=== PATIENT | female | born 1960 | race Caucasian/White ===

== ENCOUNTER → 2022-12-18 | Outpatient (CLI) | payer OTHER ==
--- NOTE | 2022-12-18 09:04 | P.PAINCN ---
History of Present Illness - Reason for Consult Consult date: 12/18/22 - History of Present Illness At this is initial consultation visit for this 62 years old female with a chronic history of severe low back pain, started after patient tripped and fell at work, which happened in March of last year, she reports from that time , he started having severe low back pain with occasional radiation to the lower extremity, she described the pain as constant dull aching pain, pain increases with any activity she tried chiropractors and she tried lumbar support brace and she tried to topical pain medication, and [id number] NSAID, she reported that she had no benefit from it and she was evaluated by Dr. Lo spine surgeon and he recommended interventional pain management, he denies any fever or night sweats she denies any auditory or sensory deficit she denies any change in the bowel movement or urination, pain is constant and increases with any activity and interferes with activity of daily livings Past Medical History History of Any Multi-Drug Resistant Organisms: None Reported Smoking Status: Unknown if ever smoked Physical Exam Physical Examinations : -Constitutiona : Cooperative , not in acute distress . -HEENT : nech : supple , no Lymphadenopathy , normal thyroid size . : eyes : no ptosis , no icterus, no photophobia . - neurologic : Cranial nerve II to XII intact , no focal neurological deffecit . -psychatric : alert , oriented X 3 , appropriate affect , intact judgment and insight . -Lymphatic : no Lymphadenopathy . - musculoskeltal : Lumber spine moter stegnth lower extremities ,thigh and legs 5/5 Right side , 5/5 Left side deep tendon reflexes : normal Knee Jerk , normal ankle Jerk lumber facet Loading Test =positive Right , positive Left Range of motion of the lumbar spine F lexion 30 degrees, extension 10 degrees strait leg raising test = positive at 45 degree Fabere test= positive Right , and positive LT . tenderness over the Sacroiliac joint on the Right , and Left sides Results Comments: MRI of the lumbar spine= multilevel lumbar degenerative disc disease and multilevel lumbar facet arthropathy Assessment and Plan Plan: Assessment and plan= chronic low back pain secondary to lumbar degenerative disc disease , lumbar spondylosis with lumbar facet arthropathy . Description would be good candidate to have diagnostic medial branch block lumbar area at L3- 4 and L4- 5 The procedure twice and if she had good results with proceeding with RFA I have spent 35 minutes on patient care today. The time was used to review the medical records including relevant urine studies and Prescription history (MAPs), review of the available imaging, evaluation and examination of the patient, coordination of care with the medical staff and if applicable referring physicians, as well as creation of the medical record. Maps were checked and appropriate, opioid start talking form is on file and updated, urine drug screens of been appropriate and have been reviewed. , Time with Patient: Greater than 30 PQRS Measure Charge Sheet Measure #130: Documentation of Current Meds in Medical Chart: Patient's medications documented in chart Measure #226: Tobacco Use: Screen & Cessation Intervention: Pt not a tobacco user Measure #111: Pneumonia Vaccination: Pneumococcal vaccine NOT administered or previously given Measure #47: Advance Care Plan: Advance care planning discussed & documented, pt chose/unable to give Measure #412: Opioid Treatment Agreement: No documentation of signed opioid treatment agreement Measure #408: Opioid Therapy Follow-up Evaluation: Patient had NO f/u eval minimum every 3 months during opioid therapy Measure #317: Preventitive Care & Scrn High Bld Press & F/U: Normal blood pressure, f/u not required Measure #128: Body Mass Index (BMI) Screening & Follow-up: BMI documented ABOVE normal parameters - f/u documented Measure #131: Pain Assessment & Follow-up: Pain positive & plan documented, Follow-up scheduled Measure #431: Unhealthy Alcohol Use Preventative Care & Scrn: Patient not identified as an unhealthy alcohol user
[2022-12-18 09:45] VITALS: BP 135/81; PULSE 82; RESP 18; TEMP 98.7
== END ==
LOC: PNWHC3 08:17
PROVIDERS: ATTEND Specialist
DX: M51.36 Other intervertebral disc degeneration, lumbar region (principal); G89.29 Other chronic pain; S32.009A Unspecified fracture of unspecified lumbar vertebra, initial encounter for closed fracture; M47.816 Spondylosis without myelopathy or radiculopathy, lumbar region
CPT/HCPCS: 99211

== ENCOUNTER → 2023-02-05 | Outpatient (CLI) | payer OTHER ==
[2023-02-05 12:26] VITALS: BP 131/74; PULSE 76; RESP 18; TEMP 97.7
--- NOTE | 2023-02-05 13:30 | P.PAINPG ---
PQRS Measure Charge Sheet Comment: A 62 yr old female with a history of severe and chronic LBP since Mar 2022 secondary to lumbar DDD and spondylosis with facet arthropathy without myelopathy presents today for evaluation s/p BL L3-L4, L4-S5 MBB #1. Pt states she experienced 100% pain relief x 8 hr s s/p procedure. Pain level is provoked at 8/10 in intensity, constant, localized in the lumbar spine, achy, sore in character w shooting towards the BLEs. Pain is provoked by bending, lifting. Pain is alleviated with medications, heat, ice, topical, repositioning, reclining and rest. Interventional pain procedures completed include BL MBB L2-L4 x1 Patient is currently on Ibu Patient denies any side effects of the medication(s), denies excessive drowsiness or sleepiness, denies suicidal ideation and reports that the current pain medication is helping to control the pain and improve activities of daily living. Patient denies any motor or sensory deficits. Patient denies any fever or night sweats, denies any change in the bowel movements or urination. Physical Examination: -Constitutional: Cooperative. Not in acute distress . - Neurologic: Cranial nerve II to XII intact. No focal neurological deficits. - Psychatric: Alert & oriented x 3. Matching mood & appropriate affect. Judgment and insight intact. - Musculoskeletal: Cervical spine: Muscle bulk/ tone/ strength in the bilateral upper extremities normal Vertebral body tenderness to palpation over Spurling test positive Distraction test positive Facet loading test positive TTP Thoracic spine Muscle bulk / tone/ strength in the bilateral paraspinal muscles normal Vertebral body tender to palpation over Facet loading test positive TTP Lumbar spine: Motor bulk/ tone/ strength lower extremities , thigh and legs : 5/5 Deep tendon reflexes : Normal Knee Jerk. Normal Ankle Jerk . Vertebral body tenderness to palpation over Bentley Test positive Lumbar Facet Loading Test positive BL L3-L4, L4-L5 Straight Leg Raise: positive at 30 degrees right side/ left side Gaenslen's Test positive Sacral spine : Severe tenderness over the Sacroiliac joint: right side / left side Range of motion: Flexion of the lumbar spine <60 degrees Range of motion: Extension of the lumbar spine <20 degrees Gaenslen's Test positive right side / left side Esthela test: positive right side / left side Thigh Thrust Test positive right side / left side Sacral Thrust Test positive right side / left side Assessment and plan: Chronic LBP secondary to lumbar DDD, spondylosis with facet arthropathy without myelopathy Recommendation of BL MBB L3-L4, L4-L5 #2. May need a series of injections, up until RFA, for optimal pain relief. Risks, benefits of procedure discussed and pt verbalized understanding. Admits to anticoagulant use or medical history of diabetes. Protocol for discontinuation/ continuation of medications bradley procedure discussed. All questions answered. I have spent less than 30 minutes on patient care today. Dr Seymour was available by phone for the evaluation of this patient. The time was used to review the medical records including relevant urine studies and Prescription h istory (MAPs), review of the available imaging, evaluation and examination of the patient, coordination of care with the medical staff and if applicable referring physicians, as well as creation of the medical record PQRS Narrative: Hx Alcohol Use (MH) Yes: OCCASIONAL Home Medications: Ambulatory Orders Aso Bladder Control 1 tab PO HS 01/18/23 Cholecalciferol (Vitamin D3) [Vitamin D3 (50 Mcg = 2000 Iu) Chew Tab] 50 mcg PO QAM 01/18/23 Ibuprofen 800 mg PO Q8H PRN 01/18/23 L.acidoph,Paracasei, B.lactis [Probiotic] 1 each PO QAM 01/18/23 Melatonin 3 mg PO HS 01/18/23 Tri-Chromium 500 mcg PO W/BRKFST 01/18/23 Controlled Substance Measures - Controlled Substance Measures Is patient prescribed a controlled substance at discharge?: No
== END ==
LOC: PNWHC3 09:05
PROVIDERS: ATTEND Specialist
DX: M51.36 Other intervertebral disc degeneration, lumbar region (principal); M47.816 Spondylosis without myelopathy or radiculopathy, lumbar region; G89.29 Other chronic pain; Z91.09 Other allergy status, other than to drugs and biological substances
CPT/HCPCS: 99211

== ENCOUNTER 2023-03-02 11:46 | Day surgery (SDC) | payer OTHER ==
[2023-02-28 13:00] VITALS: BMI 25.4
[2023-03-02 12:10] VITALS: TEMP 96.9
[2023-03-02] MEDS ORDERED: LACTATED RINGERS 1,000 ML IV ONE ×2 (12:23→13:07)
[2023-03-02] MEDS ORDERED: fentaNYL (PF) 50 MCG/ML 2 ML AMP ONE (12:43)
[2023-03-02] MEDS ORDERED: MIDAZOLAM 2 MG/2 ML VIAL ONE (12:43)
[2023-03-02] MEDS ORDERED: methylPREDNISolone ACETATE 40 MG/ML 1 ML VIAL ONE (12:43)
[2023-03-02] MEDS ORDERED: ROPIVACAINE 5 MG/ML 20 ML AMPULE ONE (12:43)
--- NOTE | 2023-03-02 13:07 | P.PCN ---
Date of Procedure: 03/02/23 Procedure(s) Performed: PREOPERATIVE DIAGNOSIS : 1- Lumbar spondylosis with Facet Arthropathy without myelopathy . POSTOPERATIVE DIAGNOSIS: 1- Lumbar spondylosis with Facet Arthropathy without myelopathy . PROCEDURE: Diagnostic bilateral L2 ,L3 , L4 ,medial branch block under fluoroscopy guidance(fluoroscopy images available in the radiology Department ) ( To target the facet joint between Bilateral L3 4, L4-5 )#2nd ANESTHESIA:, Monitored anesthesia care as per anesthesia department. EBL: Minimal COMPLICATION: None PROCEDURE INDICATION: Chronic low back pain secondary to Facet arthropathy unresponsive to conservative treatment. PROCEDURE DESCRIPTION: the patient was seen and identified in the preop holding area , risks and benefits and possible complications of the procedure and alternative were discussed with the patient, and the patient agreed to proceed with the procedure and signed the consent and vital signs monitored during the procedure and fluoroscopy was used to maximize the benefit and accuracy of the needle placement, and sedation was given to decrease patient anxiety, patient was taken to the procedure room and placed in prone position vital signs monitored in the back prepped with chlorhexidine X3 then under strict sterile technique using a right oblique fluoroscopy ,the junction of the transverse process and the superior articulating process of the right L2 ,L3 , L4 , vertebra which corresponding to the fluoroscopy image of the eye of the Taurus dog on the block side for the medial branches and subsequently , after local infiltration of skin and subcu tissuies with Ropivacaine 0.5 % , one mL at each level ,then 22-gauge Quincke-type needles , 3 needle was used , each one of them placed at the junction of the base of the transverse process and the superior articular process at the appropriate level, and the needle was advanced until the periosteum contacted, needle placement confirmed with AP oblique and lateral view and after appropriate needle placement confirmed, and after negative aspiration for heme and CSF and there was no paresthesia 1-1/2 mL of Ropivacaine 0.5% mixed with 20 mg Depo-Medrol , then half mL injected at each level after negative aspiration the needle subsequently removed and the same procedure repeated for the left side at left side at L2 , L3 , L4 levels. At the end of the procedure and the needles removed and a bandage applied after the skin was cleaned the cleaning solution patient taken to recovery room in stable condition and monitors in the recovery room for 20-30 minutes and d ischarged home in stable condition after discharge criteria met and patient will follow up with the pain clinic in 2-4 weeks
--- NOTE | 2023-03-02 13:16 | FL ---
EXAMINATION TYPE: FL guided pain mgmt statistic DATE OF EXAM: 03/02/2023 HISTORY: Fluoroscopy time Total dose area product (DAP) in uGy*m?, mGy*cm? (or similar): 9 seconds IMPRESSION: 1. Fluoroscopy time.
[2023-03-02 13:28] VITALS: BP 141/85; PULSE 60; RESP 18
[2023-03-02] MEDS ORDERED: LIDOCAINE 1% (10MG/ML) FOR IV START INTRADERMA PRN (13:37)
[2023-03-02] MEDS ORDERED: LACTATED RINGERS 1,000 ML IV SCH (13:37)
== END 2023-03-02 13:37 | disposition home or self-care (01) ==
LOC: ORPAIN 11:46
PROVIDERS: ATTEND Specialist
DX: M47.817 Spondylosis without myelopathy or radiculopathy, lumbosacral region (principal); G89.29 Other chronic pain; J45.909 Unspecified asthma, uncomplicated; Z87.891 Personal history of nicotine dependence
CPT/HCPCS: 64493; 64494 ×2; J2250; J1030; J3010; J2795

== ENCOUNTER → 2023-03-12 | Outpatient (CLI) | payer OTHER ==
--- NOTE | 2023-03-12 14:54 | CT ---
EXAMINATION TYPE: CT lumbar spine wo con DATE OF EXAM: 03/12/2023 COMPARISON: 10/24/2022 HISTORY: low back pain, lumbar spondylosis with radiculopathy CT DLP: 453.7 mGycm CONTRAST: None TECHNIQUE: CT of the lumbar spine is performed on a spiral scan at 3 mm thick sections. Reconstructed images are performed in the coronal and sagittal planes. FINDINGS: T12-L1: No focal disc herniation or significant disc bulge is evident. No spinal canal stenosis or neural foraminal stenosis is present. L1-L2: No focal disc herniation or significant disc bulge is evident. No spinal canal stenosis or n eural foraminal stenosis is present L2-L3: No focal disc herniation or significant disc bulge is evident. No spinal canal stenosis. Mil [id number] foraminal narrowing may be present. L3: There is a compression deformity of the superior endplate with approximately 50% loss of the mid vertebral body height. No posterior wall displacement is evident. Findings are stable from the prior MRI. L3-L4: Broad-based disc bulge is present with anterior thecal sac flattening. This is slightly greate r in the left paracentral region. No AP spinal canal stenosis present. Mild facet hypertrophy and lig amentum flavum laxity is posterior lateral thecal sac compression. Moderate bilateral foraminal narro wing is present. L4-L5: No focal disc herniation or significant disc bulge is evident. No spinal canal stenosis or n eural foraminal stenosis is present L5-S1: Vacuum disc phenomenon is present. There is disc space narrowing. No residual disc bulge or sp inal canal stenosis present. Neural foramen and moderate foraminal narrowing greater on the left. Vertebral alignment appears normal. IMPRESSION: 1. Old superior endplate compression deformity L3. No posterior wall displacement evident. 2. Foraminal stenosis present L3-4 and L5-S1. Some milder foraminal narrowing may be present L2-3
== END | disposition home or self-care (01) ==
LOC: RADCTMAIN 09:32
PROVIDERS: ATTEND Orthopaedic Surgery
DX: M47.26 Other spondylosis with radiculopathy, lumbar region (principal); M99.73 Connective tissue and disc stenosis of intervertebral foramina of lumbar region
CPT/HCPCS: 72131

== ENCOUNTER → 2023-04-02 | Outpatient (CLI) | payer OTHER ==
[2023-04-02 08:23] VITALS: BP 127/80; PULSE 64; RESP 16; TEMP 97.7
--- NOTE | 2023-04-02 14:32 | P.PAINPG ---
PQRS Measure Charge Sheet Comment: A 62 yr old female with a history of severe and chronic LBP since Mar 2022 secondary to lumbar DDD and spondylosis with facet arthropathy without myelopathy presents today for evaluation s/p BL L3-L4, L4-L5 MBB #2. Pt states she experienced 0% pain relief s/p procedure. Pain level is provoked at 7/10 in intensity, constant, localized in the lumbar spine, achy, throbbing in character w shooting towards the BLEs. Pain is provoked by bending, lifting. Pain is alleviated with medications, physician guided home exercises daily x 5 mo, heat, ice, topical, repositioning, reclining and rest. Oswestry axial pain score of 28. Interventional pain procedures completed include BL MBB L2-L4 x2 Patient is currently on Ibu Patient denies any side effects of the medication(s), denies excessive drowsiness or sleepiness, denies suicidal ideation and reports that the current pain medication is helping to control the pain and improve activities of daily living. Patient denies any motor or sensory deficits. Patient denies any fever or night sweats, denies any change in the bowel movements or urination. Physical Examination: -Constitutional: Cooperative. Not in acute distress . - Neurologic: Cranial nerve II to XII intact. No focal neurological deficits. - Psychatric: Alert & oriented x 3. Matching mood & appropriate affect. Judgment and insight intact. - Musculoskeletal: Cervical spine: Muscle bulk/ tone/ strength in the bilateral upper extremities normal Vertebral body tenderness to palpation over Spurling test positive Distraction test positive Facet loading test positive TTP Thoracic spine Muscle bulk / tone/ strength in the bilateral paraspinal muscles normal Vertebral body tender to palpation over Facet loading test positive TTP Lumbar spine: Motor bulk/ tone/ strength lower extremities , thigh and legs : 5/5 Deep tendon reflexes : Normal Knee Jerk. Normal Ankle Jerk . Vertebral body tenderness to palpation over Bentley Test positive Lumbar Facet Loading Test positive BL L3-L4, L4-L5 Straight Leg Raise: positive at 30 degrees right side/ left side Gaenslen's Test positive Sacral spine : Severe tenderness over the Sacroiliac joint: right side / left side Range of motion: Flexion of the lumbar spine <60 degrees Range of motion: Extension of the lumbar spine <20 degrees Gaenslen's Test positive right side / left side Esthela test: positive right side / left side Thigh Thrust Test positive right side / left side Sacral Thrust Test positive right side / left side Assessment and plan: Chronic LBP secondary to lumbar DDD, spondylosis with facet arthropathy without myelopathy Recommendation of follow up w orthopedic surgeon to explore additional treatment options. All questions answered. PQRS Narrative: Hx Alcohol Use (MH) Yes: OCCASIONAL Home Medications: Ambulatory Orders No Known Home Medications 04/02/23 Controlled Substance Measures - Controlled Substance Measures Is patient prescribed a controlled substance at discharge?: No
== END ==
LOC: PNWHC3 07:50
PROVIDERS: ATTEND Specialist
DX: M51.36 Other intervertebral disc degeneration, lumbar region (principal); M47.816 Spondylosis without myelopathy or radiculopathy, lumbar region; G89.29 Other chronic pain; Z91.09 Other allergy status, other than to drugs and biological substances
CPT/HCPCS: 99211

== ENCOUNTER → 2023-05-04 | Outpatient (CLI) | payer OTHER ==
[2023-05-04 16:36] LABS: BUN/Creat Ratio 17.33 Ratio (12.00-20.00); Blood Urea Nitrogen 15.6 mg/dL (9.0-27.0); Calcium 9.8 mg/dL (8.7-10.3); Chloride 106 mmol/L (96-109); Glucose 92 mg/dL (70-110); Sodium 143 mmol/L (135-145)
[2023-05-04 22:07] LABS: INR <0.93 sec (0.93-1.11); Prothrombin Time 10.3 sec (9.9-11.9)
[2023-05-04 23:42] LABS: Basophils # (A) 0.03 X 10*3/uL (0.00-0.10); Basophils % (A) 0.6 %; Eosinophils # (A) 0.19 X 10*3/uL (0.04-0.35); HCT 45.4 % (37.2-46.3); HGB 14.2 d/dL (12.0-15.0); Lymphocytes # (A) 1.58 X 10*3/uL (0.90-5.00); Lymphocytes % (A) 33.3 %; MCH 27.7 pg (27.0-32.0); MCHC 31.3 d/dL (32.0-37.0); MCV 88.5 FL (80.0-97.0); Mean Platelet Volume 10.4 FL (9.5-12.2); Monocytes # (A) 0.38 X 10*3/uL (0.20-1.00); NRBC Per 100 WBC 0 X 10*3/uL (0.00-0.01); Neutrophils # (A) 2.53 X 10*3/uL (1.80-7.70); Neutrophils % (A) 53.5 %; Platelet Count 305 X 10*3/uL (140-440); RBC 5.13 X 10*6/uL (4.10-5.20); RDW 13.7 % (11.5-14.5); WBC 4.74 X 10*3/uL (4.50-10.00)
== END | disposition home or self-care (01) ==
LOC: LABWHC1 10:01
PROVIDERS: ATTEND Nurse Practitioner
DX: Z01.818 Encounter for other preprocedural examination (principal)
CPT/HCPCS: 36415; 80048; 85025; 85610

== ENCOUNTER → 2023-05-23 | Outpatient (CLI) | payer OTHER | END | disposition home or self-care (01) | LOC: LABPAT 09:12 | PROVIDERS: ATTEND Orthopaedic Surgery | DX: Z01.812 Encounter for preprocedural laboratory examination (principal); M47.16 Other spondylosis with myelopathy, lumbar region; M48.061 Spinal stenosis, lumbar region without neurogenic claudication; Z22.322 Carrier or suspected carrier of Methicillin resistant Staphylococcus aureus | CPT/HCPCS: 87070 ==

== ENCOUNTER 2023-05-29 06:33 | Day surgery (SDC) | payer OTHER ==
[2023-05-28 09:02] VITALS: BMI 25.0
[~2023-05-29 06:33] MED LIST: ACETAMINOPHEN TAB 500 MG TAB PO PRN; GABAPENTIN 300 MG CAP PO PRN; ONDANSETRON 4 MG/2 ML VIAL IVP PRN; TRANEXAMIC 1,000 MG/100ML-NACL 1,000 MG in SALINE 1 100ML.BAG IVPB PRN
[2023-05-29] MEDS ORDERED: LACTATED RINGERS 1,000 ML IV ONE (06:35)
[2023-05-29] MEDS ORDERED: ONDANSETRON 4 MG/2 ML VIAL IVP ONE (06:38)
[2023-05-29] MEDS ORDERED: fentaNYL (PF) 50 MCG/ML 2 ML AMP IV PRN (06:38)
--- NOTE | 2023-05-29 06:41 | P.HPOR ---
History of Present Illness H&P Date: 05/17/23 Chief Complaint: Lumbar spondylosis .D:Date: 05/17/23 : 03:49pm .T:Title: *[facility]... COPY... Date of :[birth year] R14 Allergies: Age: 62 year Height: 5'6" Weight: 154 lbs BP:/ BMI: 24.86 kg/m2 Occupation: [employer] VAS: 6 CHIEF COMPLAINT: Re-check on low back pain DOI: 04/07/2022 DOS: None Duration of current treatment regiment:> 1 year HISTORY: Xrays No new xrays taken in office Trauma or injury Yes, FFS Work-Related No Pain description Burning & sharp Location Medial posterior Patient notes that their pain radiates to bilateral lower extremities Activity Modification Yes Hand Dominance Right TREATMENTS COMPLETED: 6 weeks of PT completed? Month and Year of last PT date? No Physician directed home exercise completed? Yes Medications MMJ gummies Alternative interventions Chiropractic:No Massage therapy: No R.I.C.E: yes heat/ice with temporary relief Brace: Yes How long was brace worn? Since FFS on 04/07/22 Did it help? Injections Yes; bilateral lumbar medial branch blocks (first on 01/19/2023 and second on 03/02/2023) RFA:No SUBJECTIVE: Ms. Oliveros returns to the office today for a pre-operative appointment for her Left L5-S1 MIS TLIF. Patient states she has had no changes to her symptoms since her last appointment. The patient notes a continued burning and sharp pain throughout the low back. She also notes continued radiating pain down into the bilateral lower extremities, associated with intermittent numbness and tingling. She notes the left lower extremity symptoms are much more severe than the right at this time. The patient states that her symptoms are exacerbated by any activity, which makes it very difficult for her to complete her regular daily activities. The patient is having moderate to severe sleep disturbances at this time. The patient notes that her symptoms have been worsening and have started to significantly affect her overall quality of life. The patient has trialed conservative treatment measures in the form of injections, at home stretches/exercises, at home heat/ice therapy, activity modification, and medication management, all with no significant or sustained relief. The patient is currently taking MMJ gummies for her pain and symptoms. HPI: Ms. Oliveros returns to the office on 04/02/23 for a re-check on her low back pain and to review recent CT scan results. The patient notes a continued burning and sharp pain throughout the low back. She also notes continued radiating pain down into the bilateral lower extremities, associated with intermittent numbness and tingling. She notes the left lower extremity symptoms are much more severe than the right at this time. The patient states that her symptoms are exacerbated by any activity, which makes it very difficult for her to complete her regular daily activities. The patient is having moderate to severe sleep disturbances at this time. The patient notes that her symptoms have been worsening and have started to significantly affect her overall quality of life. The patient recently trialed conservative treatment in the form of bilateral lumbar medial branch blocks on 01/29/2023 and 03/02/2023, both with 0% relief. The patient has also trialed conservative treatment measures in the form of at home stretches/exercises, at home heat/ice therapy, activity modification, and medication management, all with no significant or sustained relief. The patient is not currently taking any pain medications, as she has trialed several in the past, which provided her with no lasting relief. Ms. Oliveros returns to the office on 03/05/2023 for re-check on her low back pain. The patient continues to experience a burning and sharp lumbar pain that radiates down into the bilateral lower extremities. She notes that her lower extremity symptoms are associated with numbness and tingling. The patient received diagnostic medial brach block at bilateral L3-4 and L4-5 on 01/19/2023 and lumbar epidural steroid injections on 03/02/2023 both without significant or sustained relief. The patient continues to wear the LSO brace daily, which provides her with some relief of her symptoms. The patient has also trialed conservative treatment measures in te form of at home ice/heat therapies and medication management, which have provided her with no significant relief. The patient is currently using Lidocaine patches daily and taking Ibuprofen both with no relief. The patient states tat her current symptoms are making it difficult for her to complete many of her daily tasks. The patient is having moderate sleep disturbances as well due to their ongoing pain. Otherwise the patient denies any f/c/sob/cp, no bladder or bowel retention/incontinence, no perineal numbness/tingling, and ambulates independently today. Ms. Oliveros presents to the office on 11/20/2022 for a follow up of their lumbar spine and MRI results. Patient reports a burning, sharp lumbar pain ongoing for 8 months with an onset of 04/07/22 after tripping over a mat and falling. She was seen at an urgent care where she was advised to wear an LSO brace and use medications as needed. since her fall she notes that she has seen no improvements to her symptoms and notes progressive debility. Patient reports pain along the midline of the lumbar spine radiating down into the bilateral lower extremities bilaterally. She denies any numbness/tingling or overt weakness about the lower extremities at this time. Overall the patient has seen a progressive increase in symptoms since their onset. Ms. Oliveros symptoms are exacerbated with standing, ambulation, and any flexion/extension/twisting of the low back, due to this they notes that it is increasingly difficult for Ms. Oliveros to complete many of their daily tasks. Patient is having moderate sleep disturbances as well due to their ongoing pain. Regarding treatments, the patient has previously trialed rest, heat/ice, and medications all with mild/temporary relief of her symptoms. Patient denies trialing any other modalities at this time. For their symptoms, the patient has been taking Motrin, Flexeril and a previous Prednisone taper course all without lasting relief of her symptoms. Otherwise the patient denies any f/c/sob/cp, no bladder or bowel retention/incontinence, no perineal numbness/tingling, and ambulates independently. Ms. Oliveros presents to the office on 09/22/2022 for an evaluation of their lumbar spine. Patient reports a burning, sharp lumbar pain ongoing for 6 months with an onset of 04/07/22 after tripping over a mat and falling. She was seen at an urgent care where she was advised to wear an LSO brace and use medications as needed. since her fall she notes that she has seen no improvements to her symptoms and notes progressive debility. Patient reports pain along the midline of the lumbar spine radiating down into the bilateral lower extremities bilaterally. She denies any numbness/tingling or overt weakness about the lower extremities at this time. Overall the patient has seen a progressive increase in symptoms since their onset. Ms. Oliveros symptoms are exacerbated with standing, ambulation, and any flexion/extension/twisting of the low back, due to this they notes that it is increasingly difficult for Ms. Oliveros to complete many of their daily tasks. Patient is having moderate sleep disturbances as well due to their ongoing pain. Regarding treatments, the patient has previously trialed rest, heat/ice, and medications all with mild/temporary relief of her symptoms. Patient denies trialing any other modalities at this time. For their symptoms, the patient has been taking Motrin, Flexeril and a previous Prednisone taper course all without lasting relief of her symptoms. Otherwise the patient denies any f/c/sob/cp, no bladder or bowel retention/incontinence, no perineal numbness/tingling, and ambulates independently. The patients' past social, medical, family, surgical history, as well as review of systems, have been reviewed. Please refer to the Neurosurgery History and Physical form that has been scanned in to our electronic medical record system. 14 points review of systems completed and as stated in HPI, all other systems reviewed are negative. Social History: Reviewed, see appropriate section of the chart for details. [id number]: never a smoker P3 Alcohol: occasional alcohol P3 Family History:Reviewed, see appropriate section of the chart for details. P2 Past Medical History:Reviewed, see appropriate section of the chart for details. [id number] Medications: Rx: IBU 800 mg tablet Ref: 0 Rx: magnesium Ref: 0 Rx: MMJ , Ref: 0 P1 PHYSICAL EXAMINATION: General:Awake, alert, appropriate for age, in no acute distress. HEENT:No unusual neck masses around region of lateral neck triangle, thyroid, supraclavicular groove Extremities:Skin warm and dry without acute lesions, coloration, temperature, skin intact, no tenderness or erythema Integument: Hairy patches:ABSENT Dorsal skin dimples:ABSENT Cafe au lait spots:ABSENT Surgical incisions: NONE Palpation: Midline spinal tenderness:No E6 Cervical Tenderness: No E6 Paralumbar tenderness:Yes E6 Perithoracic tenderness:No E6 Buttocks tenderness:No E6 Sacroiliac Tenderness:No Hip tenderness: Yes, bilateral POSTURAL and MUSCULO-SKELETAL EVALUATION: Coronal Balance: NEUTRAL Recumbent testing: Patient isable to lay flat on back Sagittal Balance:NEUTRAL Shoulder Profile:LEVEL Pelvic Girdle:LEVEL Neck ROM:UNRESTRICTED Lumbar ROM:RESTRICTED with pain Shoulder ROM:Symmetrical Hip ROM:Symmetrical Knee ROM:Symmetrical Hands: Normal appearance, symmetrical Feet: Normal appearance, Symmetrical VASCULAR STATUS: LEFTRIGHT Wrist Pulses INTACT INTACT Pedal Pulses (Dors. pedis & post.tibialis) INTACT INTACT Color NORMAL NORMAL Edema Absent Absent NEUROLOGIC EXAMINATION: Mental Status:Awake and alert, fully oriented, with normal attention, concentration and memory, and fluent, appropriate speech. Cranial Nerves: I: Olfactory not tested. II: Visual acuity normal, no visual field deficit noted with confrontation. III,IV: Normal pupillary reflexes & intact extraocular movements without nystagmus. V,: Intact symmetrical facial sensation. VII: Intact symmetrical facial motor movement VIII: Hearing intact. IX,X: Intact gag, swallow, & normal voice. XI: Sternocleidomastoid, trapezius function intact. XII: Tongue midline with normal movements. L'hermitte's Sign:Negative / absent Spurling'Sign:Absent bilaterally. Cubital percussion test:Absent bilaterally. Reddy-Tinel sign - Carpal region: Absent bilaterally. Straight Leg Raising:Absent bilaterally. Crossed straight leg raise:negative O8 MOTOR EXAM (0-5/5, N/T Muscle appearance: Symmetrical, without signs of atrophy or dystrophy UPPER EXTREMITY RIGHT LEFT Shoulder Abduction 5/5 5/5 Biceps 5/5 5/5 Triceps 5/5 5/5 Wrist Extension 5/5 5/5 Hand Intrinsic 5/5 5/5 Field Care Manager 5/5 5/5 Hand and finger dexterity intact bilaterally? yes Disdiadochokinesis examination negative bilaterally? yes LOWER EXTREMITY RIGHT LEFT Hip Flexion 4/5 4/5 Knee Extension 4/5 4/5 Knee Flexion 4/5 4/5 Dorsiflexion 4/5 4/5 Plantarflexion 4/5 4/5 EHL 4/5 4/5 FHL 4/5 4/5 Toe heel walk / heel-toe walk intact while maintaining satisfactory balance? yes Squatting/straightening w/o assistance to a min of 60 degree knee flexion? No Single leg stance:intact Trendelenburg sign negative bilaterally REFLEXES(0-4/2, NT)Upper ExtremityLower Extremity Right 2 2 Left 2 2 Pathological Reflexes RIGHT LEFT Reddy's Absent Absent Clonus Absent Absent Babinski Absent Absent Sensory system (0-4, N/T) Test type RU NEHEMIAS RL LL Joint-Position 2 2 2 2 Vibration 2 2 2 2 Pain & LT sense 2 2 2 2 Dermatomal Deficit: None None None None Gait and Functional Evaluation: Ambulatory aids:Independent Romberg's test: Intact bilaterally Steady Gait RADIOGRAPHIC STUDIES: XRay Lumbar Multiview (AP, Lateral, Flexion, Extension) with AP pelvis; 5 views taken at [facility] on 09/22/22 of Lumbar Spine and Pelvis: L3 VCF noted with around 30% height collapse and wedge anterior component. No significant malaligment at this time. Pain associated in the are. L5-S1 autofusion noted. Disc collapse and spondylosis of lower lumbar segment.s NO other fractures noted at this time. CT [facility] at [facility] from03/12/2023 of Lumbar Spine: Images reviewed L5-S1 severe spondylosis with complete disc collapse, vacuum disc, facet arthropathy, pars elongation. Flattened LL due to collapse. Old L3 VCF noted with 45% superior endplate collapse. Sclerosis noted. No other fracture. No lesions. MRI LUMBAR SPINE 10/24/2022 AT [facility]: Images Reviewed in office with the patient. L1-2 Mild spondylosis, no stenosis L2-3 Spondylosis, moderate. L3 superior endplate fracture, appears chronic on all sequences. 30% compression and anterior wedging. No severe stenosis. No retropulsion L3-4 Spondylosis with b/l facet arthropathy and facet fluid. Mild stenotic features. L4-5 Spondylosis with b/l moderate foraminal stenosis due to facet hypertrophy and ligamentalhypertrophy. Disc height loss and dessication. L5-S1 Spondylosis, chronic with ruidmentary disc formation. No overt stenosis Alignment:LL maintained within PI, Some flattening due to fracture at L3 Coronal alignment: Maintained Fracture: L3 chronic VCF Lesion: None IMPRESSION: It was my pleasure to have seen and examined Jena. I reviewed the patient's clinical syndrome, physical findings, and imaging studies during the appointment today. It is my impression that the patient has a diagnosis of. 1. L5-S1 spondylosis with stenosis 2.Lower extremity radiculopathy, bilateral I outlined the natural course history without intervention and various interventional options. PLAN: Based on my findings I suggest the following course of action: - I discussed treatment options with the patient, including operative and non- operative options, and they have elected to proceed with the following surgical procedure: Left L5-S1 MIS TLIF The indications, risks, benefits, and alternatives to surgery were discussed with the patient at length. Specifically (but not limited to) the risks of infection, stiffness, recurrence of symptoms, need for revision surgery, local numbness, neurovascular injury, and blood clots were discussed. The patient's questions were answered. The decision to proceed was made. Consent will be obtained for the procedure. - Ambulate daily. - Take medications as directed. - Ice and rest for pain and swelling control. Spine Surgery Risk Review Ms. Oliveros is presenting for evaluation of low back pain, bilateral lower extremity numbness, tingling, and pain; left worse than right. It was my pleasure to have seen and examined Ms. Oliveros. In our visit today we have had a chance to go over subjective complaints, physical examination findings and treatments including the natural course history without intervention and various interventional options. The patients imaging demonstrates: XRay Lumbar Multiview (AP, Lateral, Flexion, Extension) with AP pelvis; 5 views taken at [facility] on 09/22/22 of Lumbar Spine and Pelvis: L3 VCF noted with around 30% height collapse and wedge anterior component. No significant malaligment at this time. Pain associated in the are. L5-S1 autofusion noted. Disc collapse and spondylosis of lower lumbar segment.s NO other fractures noted at this time. CT scancompleted at [facility] from03/12/2023 of Lumbar Spine: Images reviewed L5-S1 severe spondylosis with complete disc collapse, vacuum disc, facet arthropathy, pars elongation. Flattened LL due to collapse. Old L3 VCF noted with 45% superior endplate collapse. Sclerosis noted. No other fracture. No lesions. MRI LUMBAR SPINE 10/24/2022 AT [facility]: Images Reviewed in office with the patient. L1-2 Mild spondylosis, no stenosis L2-3 Spondylosis, moderate. L3 superior endplate fracture, appears chronic on all sequences. 30% compression and anteior wedging. No severe stenosis. No retropulsion L3-4 Spondylosis with b/l facet arthropathy and facet fluid. Mild stenotic features. L4-5 Spondylosis with b/l moderate foraminal stenosis due to facet hypertrophy and ligamentalhypertrophy. Disc height loss and dessication. L5-S1 Spondylosis, chronic with ruidmentary disc formation. No overt stenosis Alignment:LL maintained within PI, Some flattening due to fracture at L3 Coronal alignment: Maintained Fracture: L3 chronic VCF Lesion: None On physical exam, Ms. Oliveros demonstrates: The patient notes a continued burning and sharp pain throughout the low back. She also notes continued radiating pain down into the bilateral lower extremities, associated with intermittent numbness and tingling. She notes the left lower extremity symptoms are much more severe than the right at this time. The patient states that her symptoms are exacerbated by any activity, which makes it very difficult for her to complete her regular daily activities. The patient is having moderate to severe sleep disturbances at this time. The patient notes that her symptoms have been worsening and have started to significantly affect her overall quality of life. I have explained to the patient that as their condition progresses it will cause further neurological deficits and eventual paralysis. Based on the patients imaging, physical exam, and the rapid progression and disabling nature of their symptoms, at this time I recommend surgery in the form of a: Left L5-S1 MIS TLIF. I discussed the risk and benefits of this procedure at length with Ms. Oliveros. The patient agreed to considered pursuing the procedure above mentioned. Prior to surgery, she should follow up with her PCP (Cardio, ID, IM etc) for clearance. Questions were invited and answered, and the patient wishes to proceed as outlined below. Currently, I am recommendin.Left L5-S1 MIS TLIF 2.Follow up with PCP for surgical clearance 3.Review of surgical risks and benefits as well as an educational packet on the proposed surgical procedure. Risks: All surgical procedures come with inherent risks, including those related to positioning, anesthesia, intraoperative findings, and postoperative complications. It is important to understand that surgery does not come with any guarantee of a successful outcome as complications and adverse events are always possible. The patient was given a handout in office today discussing the surgical procedure and risks associated with the intervention, both of which were discussed with the patient. These risks include but are not limited to the following: * Experiencing same, different or even worse symptoms in back, neck, arms, or legs compared to before surgery. Requiring further surgery or other forms of treatment presently or at some time in the future at same or other levels of the intended spine surgery. On an extreme but fortunately relatively rare basis severe complication such as blindness, stroke, heart attack, temporary and/or permanent nerve injury, paralysis, coma, or may occur, sometimes without known exp lanation. Surgical complications may include but are not limited to risk of infection, fluid accumulation in the surgical dissection site, including a seroma or hematoma, that requires additional surgery, wound drainage, bleeding, new numbness or weakness, vision changes/loss, spinal fluid leakage, non-healing and/or infected incision, headaches, difficulty or inability to swallow, hoarseness, hemopneumothorax, pneumothorax, impotence, retrograde ejaculation, vaginal dryness; injury to nerves, spinal cord, blood vessels, lymphatics or other vital organs (i.e., bowel injury, injury to the great vessels); heterotopic bone formation; complications related to the hardware such as screws, rods, cages including misplaced hardware, device failure, instrumentation at the wrong spine level, hardware fracture/breakage, or hardware loosening; vertebral failure of the spinal column above or below the newly placed hardware; retained surgical instrumentations or devices and the need for further surgery. * Medical risks of the planned spine surgery include but are not limited to generalized Infections to the whole body or local areas outside of the surgical site (sepsis), heart attack, bleeding, anaphylaxis, meningitis, seizure, epilepsy, hearing loss, burn [place], laceration of the head or other areas of the body, bruising, hypersensitivity of the skin, bladder over distension; allergic reaction; shoulder injury related to positioning; fat, blood and air clots to other areas of the body like heart, lungs, brain; failure of internal organs such as lungs, kidneys, liver and excessive bleeding. If blood transfusions are necessary, note that transfusions may cause intolerance reactions such as anaphylaxis or other complex reactions. Despite best efforts, the results of spine surgery might not heal in terms of bone, soft tissues such as skin, fascia, ligaments, and joints. Additionally, in order to achieve best possible results, spine surgery may be carried out beyond the initially planned levels and involve decompression, fusion including insertion of hardware at levels other than the original intended area of surgical interest change some portions of the procedure in order to ensure the best possible outcomes. With spine surgery and spinal fusion, there are different off label uses of instrumentation (devices, implants and hardware) as well as biological sub stances (bone morphogenic proteins, demineralized bone matrix) as well as using extra bone from allograft sources (i.e. cadaver bone) or autograft (iliac crest bone, ribs, or the spine itself). The patient has been given information about these practices and their inherent risks and benefits. [facility] is an educational center that serves as a training facility for neurosurgical and orthopedic TILE HELPER and Nursing students. Physician assistants are medically trained surgical providers who function in the outpatient, inpatient, and operating room setting under the direct supervision of the attending surgeon. [facility] has multiple operating rooms with single and overlapping rooms running daily. They currently function under the required guidelines as produced by the [facility] Finance Committee with regards to the overlapping rooms and will continue to comply with changes to this policy as they occur. The requirements include and are complied with as follows: (1) the critical portions of the overlapping rooms will not occur at the same time, (2) the attending physician will be physically present during the critical portions of the procedure and immediately available during the entire case, and (3) a back-up attending is designated should the primary attending not be immediately available. The patient has had a chance to review all the listed information, has been given print outs detailing this information, and has had all his/her questions answered to their satisfaction. It was my pleasure to have seen and examined Ms. Oliveros. In our visit today we have had a chance to go over my understanding of our patient's current condition, the natural course history without intervention and various interventional options. Questions were invited and answered, and the patient wishes to proceed as outlined above. I have seen and examined the patient for 25 minutes and we have spent more than 50% of the time in repeat and detailed counseling about the patient's condition, its natural course history with out and as much as can be predicted with surgery and re-review of various surgical treatment options. In conclusion, Ms. Oliveros requested we proceed with the above suggested surgery and are willing to accept risks and limitations of the suggested surgery as nature of the disease process and our best attempts at treatment for the condi tion. Thank you again for allowing us to be part of your patient's care. Please don't hesitate to contact me if you have any further questions. Follow-up: DEL Post procedure 1month 6wks 3 months 6 months 1 year Patient Education: (Informational booklet, instructions, etc) given at today's appointment: DEL Yes .ED:Patient Education: Y Medications Reviewed: YES In our visit today Ms. Oliveros and I have had a chance to go over my understanding of the patient's current condition, the natural course history without intervention and various interventional options. Questions were invited and answered, and the patient wishes to proceed as outlined above. I will be sure to keep you updated afterMs. Oliveros returns here for further follow-up. Thank you again for your referral. Please do not hesitate to contact me if you have any further questions. Signed and authenticated by: JUHI Dimas [facility] [address] [facility], [address] [address] This message is confidential, intended only for the named recipient(s) and may contain information that is privileged or exempt from disclosure under applicable law. If you are not the intended recipient(s), you are notified that the dissemination, distribution or copying of this information is strictly prohibited. If you received this message in error, please notify the sender then delete this message. Patient verbalizes understanding of the information discussed. The above note was initiated by Lamberto Landon, physician recording librarian assistant for Dr. Fabian Lo. This note has been reviewed by Dr. Lo, who has made his personal changes and impressions for this document. CC: Julienne Monroe NP Past Medical History Past Medical History: Asthma, Osteoarthritis (OA) Additional Past Medical History / Comment(s): Environmental allergies, chronic low back pain/fractured vertebrae, weak bladder History of Any Multi-Drug Resistant Organisms: None Reported Past Surgical History: Appendectomy, Hysterectomy, Orthopedic Surgery, Tonsillectomy Additional Past Surgical History / Comment(s): C-Sections x 2, D&C and artery was nicked/repaired/infection then hysterectomy, L knee arthroscopy/meniscus, colonoscopies Past Anesthesia/Blood Transfusion Reactions: No Reported Reaction Additional Past Anesthesia/Blood Transfusion Reaction / Comment(s): Pt has received blood in past without reaction. Smoking Status: Former smoker - Past Family History Father Family Medical History: Diabetes Mellitus Additional Family Medical History / Comment(s): many health problems Mother Family Medical History: Cancer Medications and Allergies Home Medications Medication Instructions Recorded Confirmed Type Magnesium 400 mg PO HS 05/28/23 05/28/23 History Vitamin E Acetate [Vitamin E] 500 mg PO DAILY 05/28/23 05/28/23 History Vitamins Unk To Bring List 1 dose PO DAILY 05/28/23 05/28/23 History Allergies Allergy/AdvReac Type Severity Reaction Status Date / Time environmental Allergy Mild Cough Uncoded 05/25/23 16:20 Physical Examination Osteopathic Statement: *. No significant issues noted on an osteopathic structural exam other than those noted in the History and Physical/Consult.
[2023-05-29] MEDS ORDERED: THROMBIN (BOVINE) 5,000 UNIT VIAL TOPICAL ONE (08:29)
[2023-05-29] MEDS ORDERED: GELATIN SPONGE,ABSORB (LARGE) 1 EACH SPONGE TOPICAL ONE (08:30)
[2023-05-29] MEDS ORDERED: VANCOMYCIN 1,000 MG VIAL MISCELLANE ONE (09:41)
[2023-05-29] MEDS ORDERED: LIDOCAINE 1%-EPI 1:100,000 50 ML VIAL SQ ONE (09:45)
[2023-05-29] MEDS ORDERED: BUPIVACAINE (PF) 0.25% 30 ML VIAL SQ ONE (09:45)
[2023-05-29] MEDS ORDERED: HYDROcodone/APAP 5-325MG 1 EACH TAB PO PRN (10:09)
[2023-05-29] MEDS ORDERED: bisacodyL 10 MG SUPP RECTAL PRN (10:09)
[2023-05-29] MEDS ORDERED: ONDANSETRON 4 MG/2 ML VIAL IVP PRN (10:09)
[2023-05-29] MEDS ORDERED: HYDROmorphone 0.5 MG/0.5 ML SYRINGE IVP PRN (10:09)
[2023-05-29] MEDS ORDERED: HYDROcodone/APAP 10-325MG 1 EACH TAB PO PRN (10:09)
[2023-05-29] MEDS ORDERED: CYCLOBENZAPRINE 5 MG TAB PO PRN (10:09)
[2023-05-29] MEDS ORDERED: MAGNESIUM HYDROXIDE 2,400 MG/30 ML CUP PO PRN (10:09)
[2023-05-29] MEDS ORDERED: HYDROmorphone 1 MG/ML 1 ML SYRINGE IVP PRN (10:09)
[2023-05-29] MEDS: HYDROmorphone 0.5 MG/0.5 ML SYRINGE IVP PRN ×4 (10:13→11:21)
--- NOTE | 2023-05-29 10:22 | P.OP ---
Date of Procedure: 05/29/23 Preoperative Diagnosis: 1. L5-S1 SPONDYLOSIS SEVERE WITH STENOSIS 2. FORAMINAL STENOSIS L5-S1 3. LLE RADICULOPATHY 4. LLE WEAKNESS 5. LOW BACK PAIN Postoperative Diagnosis: 1. L5-S1 SPONDYLOSIS SEVERE WITH STENOSIS 2. FORAMINAL STENOSIS L5-S1 3. LLE RADICULOPATHY 4. LLE WEAKNESS 5. LOW BACK PAIN Procedure(s) Performed: 1. L5-S1 POSTERIOLATERAL AND INTERBODY FUSION (19953) 2. L5-S1 LAMINOFORAMINOTOMY (63997) 3. INSTRUMENTATION L5-S1 (66421) 4. INSERTION OF INTERBODY DEVICE L5-S1 (51909) 5. USE OF Rabbit TV NAVIGATION FOR SCREW PLACEMENT (88504) USE OF IONM ALL SCREWS TESTING >20MA USE OF IO MICROSCOPE Implants: -EMILY EVEREST SCREWS -GLOBUS SABLE CAGE 6-12 8 DEG, MED, 10MM -VENTRIS CONTOUR (DS); MAGNATOS (PL); ARTHROCELL (CAGE) Anesthesia: MALIA Surgeon: Fabian Lo Combustion Engineer #1: Sydnee Molina (WAS PRESENT AND ASSISTED WITH ALL ASPECTS OF THE CASE FROM POSITION TO CLOSURE) Estimated Blood Loss (ml): 100 IV fluids (ml): 1,200 Urine output (ml): 300 Pathology: none sent Condition: stable Disposition: PACU Indications for Procedure: Ms. Oliveros is presenting for evaluation of low back pain, bilateral lower extremity numbness, tingling, and pain; left worse than right. It was my pleasure to have seen and examined Ms. Oliveros. In our visit today we have had a chance to go over subjective complaints, physical examination findings and treatments including the natural course history without intervention and various interventional options. The patients imaging demonstrates: XRay Lumbar Multiview (AP, Lateral, Flexion, Extension) with AP pelvis; 5 views taken at [facility] on 09/22/22 of Lumbar Spine and Pelvis: L3 VCF noted with around 30% height collapse and wedge anterior component. No significant malaligment at this time. Pain associated in the are. L5-S1 autofusion noted. Disc collapse and spondylosis of lower lumbar segment.s NO other fractures noted at this time. CT [facility] of Lumbar Spine: Images reviewed L5-S1 severe spondylosis with complete disc collapse, vacuum disc, facet arthropathy, pars elongation. Flattened LL due to collapse. Old L3 VCF noted with 45% superior endplate collapse. Sclerosis noted. No other fracture. No lesions. MRI LUMBAR SPINE 10/24/2022 AT [facility]: Images Reviewed in office with the patient. L1-2 Mild spondylosis, no stenosis L2-3 Spondylosis, moderate. L3 superior endplate fracture, appears chronic on all sequences. 30% compression and anteior wedging. No severe stenosis. No retropulsion L3-4 Spondylosis with b/l facet arthropathy and facet fluid. Mild stenotic features. L4-5 Spondylosis with b/l moderate foraminal stenosis due to facet hypertrophy and ligamentalhypertrophy. Disc height loss and dessication. L5-S1 Spondylosis, chronic with ruidmentary disc formation. No overt stenosis Alignment:LL maintained within PI, Some flattening due to fracture at L3 Coronal alignment: Maintained Fracture: L3 chronic VCF Lesion: None On physical exam, Ms. Oliveros demonstrates: The patient notes a continued burning and sharp pain throughout the low back. She also notes continued radiating pain down into the bilateral lower extremities, associated with intermittent numbness and tingling. She notes the left lower extremity symptoms are much more severe than the right at this time. The patient states that her symptoms are exacerbated by any activity, which makes it very difficult for her to complete her regular daily activities. The patient is having moderate to severe sleep disturbances at this time. The patient notes that her symptoms have been worsening and have started to significantly affect her overall quality of life. I have explained to the patient that as their condition progresses it will cause further neurological deficits and eventual paralysis. Based on the patients imaging, physical exam, and the rapid progression and disabling nature of their symptoms, at this time I recommend surgery in the form of a: Left L5-S1 MIS TLIF. I discussed the risk and benefits of this procedure at length with Ms. Oliveros. The patient agreed to considered pursuing the procedure above mentioned. Prior to surgery, she should follow up with her PCP (Cardio, ID, IM etc) for clearance. Questions were invited and answered, and the patient wishes to proceed as outlined below. Currently, I am recommendin.Left L5-S1 MIS TLIF Description of Procedure: L5-S1 MIS TLIF SINGH (L) The patient was seen and examined in the preoperative area. All preoperative protocols were followed. Informed consent was obtained, risks and benefits of the procedure were discussed at length. Risks including bleeding infection damage to the surrounding tissue and risk of reoperation were discussed with the patient. Risk of anesthesia up to and including was discussed with the patient. These are outlined in the risk review. They were willing to accept these risks and all the risks of surgery. The patient was given a weight-based dose of antibiotics in the form of 2 g Ancef. The patient was seen and evaluated by the anesthesia team who deemed them fit for surgery. The site was marked, the patient was willing to proceed with the procedure. The patient was transferred to the operative suite by the Department of anesthesia. They were then drifted off to sleep by the department anesthesia and GETA was performed. The patient tolerated this well. Persaud catheter was placed by nursing staff, a-traumatically. Once confirmation of lines and vent ilation the patient was transferred to a prone Octavio table very carefully. All bony prominences including wrists, elbows, axilla, chest, hips, and thighs, and feet were padded very well. Special attention was paid to the genitalia, and these were padded accordingly. SCDs were placed on bilateral lower extremities and were connected. Arms were well padded and placed on arm boards up and out in the 90/90 position. Once in position, again we confirmed good ventilation capabilities and that lines were running appropriately. The patients Lumbar spine was then exposed. 1010s were placed outlining the incision site. Standard alcohol was used to clean the incision site and allowed to dry. C-arm was used to needle localize the pedicles at L5-S1 and bio-gama the patient and confirm level for incision which was marked with a skin marker. Operative briefing was performed with all teams and everyone in agreement to proceed. The patient was then prepped and draped in a normal sterile fashion. Timeout was then performed, and all parties agreed with the procedure to be performed. Skin nicks were made over the PSIS on the right side and pins placed for the Tengaged Navigation tracker. This was secured and then a 3D Zhiem spin was registered. Once registered it was tested and confirmed to be accurate. We then targeted pedicles b/l at L5 and S1 using navigated Jamshidi and drill gu debbie. Wires were then placed in their void and confirmed to be in good position on AP and Lateral. Contralateral right side screws were then placed over wires and tested and they all tested above 20 mA. Attention was then turned to interbody fusion at L5-S1. Tubular retractor system was placed at the interspace of L5-S1 using biplanar c arm. Once in position and dilated up to 26mm tube it was locked to the bed and confirmed in good position. Microscope was then brought in for visualization. Limited myomectomy was performed and laminectomy, complete facetectomy and foraminotomy performed at L5-S1 using high speed arely and Kerrison rongure. The ligamentum was removed and dural sac decompressed. Exiting and traversing roots visualized and decompressed. Neural elements were then protected, and disc space accessed with an osteotome. Sequential shaving then done under lateral imaging and complete discectomy performed using ashkan, pituitary and curette. Once good bleeding endplates accomplished and good height mu-ism with trials, a combination of autograft, allograft and synthetic placed anterior in the disc space. The cage was then selected and impacted into place under lateral imaging. The cage was then expanded restoring height, lordosis and alignment. The cage was backfilled with bone graft through a funnel. The company manager removed and area inspected. Good cage placement, stable cage and no injuries. Area was irrigated copiously, and meticulous hemostasis achieved. The tubular retractor was then removed under direct visualization. Screws were then selected and placed over the previously placed wires on the ipsilateral side. This was done in the fashion described above. Screws were then tested, and all tested above 20 mA. Shells were then placed on the tabs. Osiel length was then measured, and rods selected. They were then placed through the MIS tabs, subfascial. These were then locked into place with set screws and final tightened. Soiel holders removed and images taken showing good placement of rods good lordosis and mu-ism of height. Tabs were broken off. Wounds were then copiously irrigated with NSS. [place] used for TP decortication and mixture of MagnatOs, allograft and autograft packed posterolateral. Facia was then closed with 0 Vircyl. Deep subq closed with 0 Vicryl. Superficial subq closed with 2-0 Vicryl and skin with nirmal. Wound edges approximated very well. Wound was then cleaned with alcohol and dried. Wounds dressed in Optifoam dressings. The patient was then transferred off the table back to their hospital bed a- traumatically. They were extubated by the department of anesthesia. They were then transferred to PACU in stable condition having tolerated the procedure with no complications.
[2023-05-29] MEDS: LACTATED RINGERS 1,000 ML IV SCH (14:29)
[2023-05-29 14:46] VITALS: RESP 18
[2023-05-29] MEDS ORDERED: SERRAPEPTASE PO PRN (15:42)
--- NOTE | 2023-05-29 17:10 | CT ---
EXAMINATION TYPE: CT lumbar spine wo con CT DLP: 840.2 mGycm, Automated exposure control for dose reduction was used. DATE OF EXAM: 05/29/2023 4:54 PM COMPARISON: 03/12/2023. CLINICAL INDICATION:Female, 62 years old with history of s/p L5-S1 IN PLIF; PHH, post-op TECHNIQUE: Multiple axial images were obtained from the midportion of T11 through the sacroiliac yuliya nts. Soft tissue and bone windows in coronal and sagittal planes were obtained and reviewed. 3-D ref ormats of the bones were created on a separate workstation and submitted for review. Contrast used: none. Oral contrast used: none. FINDINGS: Postsurgical changes to the lumbar spine with fixation hardware at L5 and S1. Discectomy at L5-S1. Azul rdware limits evaluation at these levels. Hardware appears intact. No evidence of fracture. Postsurgical changes in the soft tissues with foci of gas present. Posterior back skin nirmal are pr esent. IMPRESSION: Postsurgical changes without evidence of immediate post operative complication.
--- NOTE | 2023-05-29 19:50 | FL ---
Intraoperative/procedural fluoroscopic services were provided. Total fluoroscopy time is 59 seconds w ith a total of 9 submitted images to PACS. Please see the operative/procedural note for further detai ls. DAP: 4772.47 cGycm2
[2023-05-29] MEDS ORDERED: MAGNESIUM OXIDE 400 MG TAB PO SCH (21:00)
[2023-05-29] MEDS ORDERED: CHOLECALCIFEROL 125 MCG (5000 IU) TABLET PO SCH (21:00)
--- NOTE | 2023-05-29 22:53 | P.CONS ---
History of Present Illness - Reason for Consult Consult date: 05/29/23 Medical management - Chief Complaint S/p lumbar surgery. - History of Present Illness Patient is a 62-year-old female with a known history of asthma, osteoarthritis, history of fall about a year ago and since then has been having chronic low back pain. Patient also had fractured vertebrae. She has been having sharp pain down the bilateral lower extremity consistent with numbness and tingling. Failed conservative measures including epidural steroid injection and LSO brace and pain medication including lidocaine patches without much relief. Patient had MRI of the lumbar spine showed degenerative changes with L4-L5 moderate neural foraminal stenosis with facet abutting the exiting nerve roots bilaterally. Left greater than right. Compression deformity of the L3 with at least 25 to 50% height loss without evidence of retropulsion. Patient underwent L5-S1 posterior lateral and interbody fusion and lamina foraminectomy, insertion of interbody device L5-S1 on 05/29/2023. CT lumbar spine showed postsurgical changes without evidence of immediate postoperative complication. Laboratory data showed potassium level 4.3. Patient currently denies any complaints of chest pain or shortness of breath. Bilateral lower extremity pain is better. No complaints of nausea vomiting abdominal pain or diarrhea. No cough or sputum production. Patient does have history of smoking and uses marijuana daily. Review of Systems Constitutional: Patient denies any fever or chills . no Generalized weakness. Abdomen: Patient denied any nausea or vomiting or abd. pain Cardiovascular: Patient denies any chest pain or short of breath no palpitations. Respiratory: patient denied any cough . no sputum production. No shortness of breath Neurologic: Patient denied any numbness or tingling headache. Musculoskeletal: Patient denies any complaints of joint swelling or deformity. Skin: Negative Psychiatric: Negative Endocrine: No heat or cold intolerance. No recent weight gain. Genitourinary: No dysuria or hematuria. All other 14 point ROS negative except the above Past Medical History Past Medical History: Asthma, Osteoarthritis (OA) Additional Past Medical History / Comment(s): Environmental allergies, chronic low back pain/fractured vertebrae, weak bladder History of Any Multi-Drug Resistant Organisms: None Reported Past Surgical History: Appendectomy, Hysterectomy, Orthopedic Surgery, Tonsillectomy Additional Past Surgical History / Comment(s): C-Sections x 2, D&C and artery was nicked/repaired/infection then hysterectomy, L knee arthroscopy/meniscus, colonoscopies Past Anesthesia/Blood Transfusion Reactions: No Reported Reaction Additional Past Anesthesia/Blood Transfusion Reaction / Comm: Pt has received blood in past without reaction. Past Psychological History: No Psychological Hx Reported Additional Psychological History / Comment(s): Pt resides with sister and son. Independent. Smoking Status: Former smoker Past Alcohol Use History: Rare Additional Past Alcohol Use History / Comment(s): Pt started smoking as a teen and quit 2012 Past Drug Use History: Marijuana Additional Drug Use History / Comment(s): Medical marijuana mostly edibles nightly - Past Family History Father Family Medical History: Diabetes Mellitus Additional Family Medical History / Comment(s): many health problems Mother Family Medical History: Cancer Medications and Allergies Home Medications Medication Instructions Recorded Confirmed Type Magnesium 400 mg PO HS 05/28/23 05/29/23 History Chlorella 300 mg PO WEEKLY 05/29/23 05/29/23 History Cholecalciferol (Vitamin D3) 5,000 units PO HS 05/29/23 05/29/23 History [Vitamin D3] Chromium W Cinnamon 1 cap PO WEEKLY 05/29/23 05/29/23 History Food Grade Diatemacous Earth 1 tsp PO DAILY 05/29/23 05/29/23 History [place]-3/Dha/Epa/Fish Oil [Fish Oil 1 capsule PO DAILY 05/29/23 05/29/23 History 1,000 mg Softgel] Serrapeptase 220 mg PO DAILY PRN 05/29/23 05/29/23 History Spirlina 500 mg PO WEEKLY 05/29/23 05/29/23 History Allergies Allergy/AdvReac Type Severity Reaction Status Date / Time environmental Allergy Mild Cough Uncoded 05/29/23 06:49 Physical Exam Vitals: Vital Signs Temp Pulse Pulse Pulse Resp BP BP 05/29/23 20:00 98.9 F 75 18 122/74 05/29/23 14:45 97.8 F 84 18 113/75 05/29/23 14:22 97.8 F 84 84 16 113/75 05/29/23 14:20 79 16 117/63 05/29/23 13:30 80 16 119/56 05/29/23 13:00 91 16 109/55 05/29/23 12:30 74 16 105/61 05/29/23 12:00 69 16 122/59 05/29/23 11:30 65 16 126/61 05/29/23 11:15 72 16 126/61 05/29/23 11:00 58 L 16 130/60 05/29/23 10:45 68 16 138/93 05/29/23 10:30 64 14 135/78 05/29/23 10:15 61 14 136/65 05/29/23 10:10 97.3 F L 77 14 158/69 05/29/23 06:51 98.8 F 68 18 143/70 Pulse Ox 05/29/23 20:00 97 05/29/23 14:45 98 05/29/23 14:22 98 05/29/23 14:20 97 05/29/23 13:30 97 05/29/23 13:00 97 05/29/23 12:30 97 05/29/23 12:00 96 05/29/23 11:30 98 05/29/23 11:15 97 05/29/23 11:00 97 05/29/23 10:45 97 05/29/23 10:30 97 05/29/23 10:15 99 05/29/23 10:10 98 05/29/23 06:51 98 Intake and Output 05/29/23 05/29/23 05/29/23 06:59 14:59 22:59 Intake Total 100 1450 Output Total 75 Balance 100 1375 Intake: IV 100 1450 Output: Estimated Blood Loss 75 Other: # Voids 1 Weight 71.6 kg 71.6 kg PHYSICAL EXAMINATION: Patient is lying in the bed comfortably, no acute distress, awake alert and oriented.. HEENT: Normocephalic. Neck is supple. Pupils reactive. Nostrils clear. Oral cavity is moist. Neck reveals no JVD, carotid bruits, or thyromegaly. CHEST EXAMINATION: Trachea is central. Symmetrical expansion. Lung silva clear to auscultation and percussion. CARDIAC: Normal S1, S2 with no gallops. No murmurs ABDOMEN: Soft. Bowel sounds present. Nontender. No organomegaly. No abdominal bruits. Extremities: reveal no edema. No clubbing or cyanosis Neurologically awake, alert, oriented x3 with well-coordinated movements. No focal deficits noted Skin: No rash or skin lesions. Psychiatric: Coperative. Nonsuicidal, Musculoskeletal: No joint swelling or deformity. Normal range of motion. Results CBC & Chem 7: 05/29/23 06:33 Assessment and Plan Assessment: Status post L5-S1 posterior lateral and interbody fusion, laminal foraminotomy and insertion of intervertebral body device. Postoperative day 0 Bilateral lower extremity radiculopathy left greater than right. Chronic low back pain History of fall about 1 year ago Osteoarthritis Asthma not in exacerbation Daily marijuana use Plan: Patient will be continued on pain management, bowel regimen. Encourage incentive spirometry. DVT prophylaxis with SCDs and early ambulation. PT OT was consulted. Patient will be continued on home medications as needed. Follow-up CBC and BMP tomorrow. Further recommendations based on the clinical course. We will continue to follow. Thank you for your consult.
[2023-05-30 06:52] LABS: Basophils % (A) 0 %; Eosinophils % (A) 0 %; HCT 38.8 % (34.0-46.0); Lymphocytes # (A) 0.9 k/uL (1.0-4.8); Lymphocytes % (A) 13 %; MCH 28.5 pg (25.0-35.0); MCHC 33.4 g/dL (31.0-37.0); MCV 85.4 fL (80.0-100.0); Mean Platelet Volume 7.2; Monocytes # (A) 0.4 k/uL (0-1.0); Monocytes % (A) 6 %; Neutrophils # (A) 5.4 k/uL (1.3-7.7); Neutrophils % (A) 80 %; Platelet Count 226 k/uL (150-450); RBC 4.55 m/uL (3.80-5.40); RDW 12.9 % (11.5-15.5); WBC 6.7 k/uL (3.8-10.6)
[2023-05-30 07:05] LABS: African American GFR (CKD) >90 (>60 ml/min/1.73 sqM); Anion Gap 4 mmol/L; Blood Urea Nitrogen 12 mg/dL (7-17); Calcium 8.9 mg/dL (8.4-10.2); Carbon Dioxide 28 mmol/L (22-30); Chloride 105 mmol/L (98-107); Glucose 110 mg/dL (74-99); Non-African American GFR(CKD) 87 (>60 ml/min/1.73 sqM); Potassium 4.3 mmol/L (3.5-5.1); Sodium 137 mmol/L (137-145)
[2023-05-30 07:21] VITALS: BP 131/82; PULSE 71; TEMP 99.9
[2023-05-30] MEDS ORDERED: PROCHLORPERAZINE INJ 10 MG/2 ML VIAL IVP PRN (08:05)
[2023-05-30] MEDS ORDERED: MORPHINE SULFATE 4 MG/ML SYRINGE IVP PRN (08:05)
--- NOTE | 2023-05-30 08:31 | P.PN ---
Subjective Progress Note Date: 05/30/23 Principal diagnosis: 1. L5-S1 spondylosis with stenosis 2.Lower extremity radiculopathy, bilateral Patient seen and examined this morning. Patient is resting currently in bed. Surgical incision to the paralumbar spine, dressings are clean dry and intact. No active drainage. Patient states she has been ambulatory independently to the restroom, tolerating activity well. She reports that her pain is managed on current regimen. Patient reports improvement to her bilateral lower extremities since the procedure. Overall patient states she is doing well and is looking forward to being discharged later today. Objective - Vital Signs Vital signs: Vital Signs Temp 99.9 F H 05/30/23 06:58 Pulse 71 05/30/23 06:58 Resp 18 05/30/23 06:58 BP 131/82 05/30/23 06:58 Pulse Ox 96 05/30/23 06:58 FiO2 Intake & Output 05/29/23 05/30/23 05/30/23 18:59 06:59 18:59 Intake Total 1450 Output Total 75 Balance 1375 Weight 71.6 kg Intake: IV 1450 Output: Estimated Blood Loss 75 Other: # Voids 1 1 - Exam Inspection: Surgical incisions the paralumbar spine, dressings are clean dry and intact with no shadowing noted. Sensation: Sensation is equal, symmetric, bilaterally intact throughout the upper and lower extremities Palpation: Nontender to palpation throughout bilateral upper and lower extremities and throughout spine exam Range of motion: Patient does have full range of motion bilateral upper and lower extremities on exam Motor: 5/5 in all major motor groups in the bilateral upper and 4/5 lower extremities Special tests: Negative Homans bilaterally. Negative Pavan bilaterally. Negative clonus bilaterally. Neurovascular: Radial pulse intact, 2+ bilaterally. Cap refill under 3 seconds in digits upper extremities. - Labs CBC & Chem 7: 05/30/23 06:18 05/30/23 06:18 Labs: Abnormal Lab Results - Last 24 Hours (Table) 05/30/23 05/30/23 Range/Units 06:18 06:18 Lymphocytes # 0.9 L (1.0-4.8) k/uL Glucose 110 H (74-99) mg/dL Assessment and Plan Assessment: Postop day 1: Minimally Invasive Transforaminal Lumbar Interbody Fusion 1. L5-S1 spondylosis with stenosis 2.Lower extremity radiculopathy, bilateral Plan: -Appreciate analytics consultant and team management. -Activity: Ambulate QID, OOB all meals, up and about, limit lifting bending twisting to less than 5 lbs. Use walker or cane if needed for stability. -Daily PT/OT, increase ambulation strength and balance. -Pain control: Adequate at this time -Meds: reviewed -GI ppx: senna, Miralax -DVT PPX: Mechanical -Hygiene: Shower today. Maintain dressing clean and dry. Meticulous cleaning after BMs away from the incision site -Encourage IS 10x/hr -Dispo: Anticipate discharge home today with homecare *I reviewed and discussed this case with my attending Dr. Lo, whom has reviewed this chart and films and is in agreement with assessment and plan of care as outlined above. I have personally seen and examined the patient, performed the documentation and the assessment and plan as written. Number of minutes spent on the visit: 20m.
[2023-05-30] MEDS ORDERED: SENNOSIDES-DOCUSATE SODIUM 1 EACH TAB PO SCH (09:00)
[2023-05-30] MEDS ORDERED: NON FORMULARY DRUG (Omega-3/Dha/Epa/Fish Oil [Fish Oil 1,000 Mg Softgel] 1 EACH Capsule) PO SCH (09:00)
--- NOTE | 2023-05-30 09:22 | P.DS ---
Providers Date of admission: 05/29/23 Expected date of discharge: 05/30/23 Attending physician: Fabian Lo DO Consults: 05/29/23 10:09 Consult Physician Routine Consulting Provider: Jose Ramos Reason/Comments: Medical management Do you want consulting provider notified?: Yes Primary care physician: K[facility] Course: Hospital Course: The patient was evaluated preoperatively and found to have the diagnosis of lumbar spondylosis with stenosis. They underwent appropriate preoperative care and were willing to undergo the intended procedure. They underwent a successful L5-S1 minimally invasive transforaminal lumbar interbody fusion, were recovered appropriately and sent to the floor. While on the floor they worked with physical therapy, occupational therapy and nursing to enhance their recovery experience. Their pain was well controlled through their stay and they were started on appropriate medications, DVT ppx modalities, activity and dietary needs. Daily labs were monitored closely, and transfusions were only used when necessary. Medicine as well as other consulting services have made their input and have helped with our team approach and multidisciplinary care. PT milestones have been met and passed and they have made the recommendation of home with home care for this patient and treating providers agree with this care path. The patient will be discharged home with appropriate medications, instructions and follow-up information and in stable condition. Patient Condition at Discharge: Good Plan - Discharge Summary Discharge Rx Participant: Yes New Discharge Prescriptions: New HYDROcodone/APAP 5-325MG [[place]evington 5-325] 1 tab PO Q6HR PRN #42 tab PRN Reason: Pain cefaDROXiL [Duricef] 500 mg PO Q12HR #10 cap No Action Cholecalciferol (Vitamin D3) [Vitamin D3] 5,000 units PO HS Orion-3/Dha/Epa/Fish Oil [Fish Oil 1,000 mg Softgel] 1 capsule PO DAILY Serrapeptase 220 mg PO DAILY PRN PRN Reason: Mild Pain (Scale 1 To 3) Spirlina 500 mg PO WEEKLY Food Grade Diatemacous Earth 1 tsp PO DAILY Magnesium 400 mg PO HS Chlorella 300 mg PO WEEKLY Chromium W Cinnamon 1 cap PO WEEKLY Discharge Medication List Magnesium 400 mg PO HS 05/28/23 [History] Chlorella 300 mg PO WEEKLY 05/29/23 [History] Cholecalciferol (Vitamin D3) [Vitamin D3] 5,000 units PO HS 05/29/23 [History] Chromium W Cinnamon 1 cap PO WEEKLY 05/29/23 [History] Food Grade Diatemacous Earth 1 tsp PO DAILY 05/29/23 [History] Orion-3/Dha/Epa/Fish Oil [Fish Oil 1,000 mg Softgel] 1 capsule PO DAILY 05/29/23 [History] Serrapeptase 220 mg PO DAILY PRN 05/29/23 [History] Spirlina 500 mg PO WEEKLY 05/29/23 [History] HYDROcodone/APAP 5-325MG [Bevington 5-325] 1 tab PO Q6HR PRN #42 tab 05/30/23 [Rx] cefaDROXiL [Duricef] 500 mg PO Q12HR #10 cap 05/30/23 [Rx] Follow up Appointment(s)/Referral(s): Fabian Lo DO [Doctor of Osteopathic Medicine] - 06/13/23 9:00 am Activity/Diet/Wound Care/Special Instructions: Spine Discharge and Recovery Instructions Date of Surgery: 05/29/2023 Diagnosis: Lumbar spondylosis with stenosis Procedure: L5-S1 minimally invasive TLIF Medications: See medication list All medication refills should be obtained through your primary care doctor or your clinic spine surgeon. Please discuss prescription refills at your follow up appointment. Do not call the hospital for medication refills. Dressing: Leave your dressing in place for a total of 5 days post operatively. Then you may remove your dressing and leave open to air. Keep the area clean and if not able to keep area clean, then cover with sterile gauze and tape. Showering: You may shower 3 days after your procedure allowing soap and water to run over incision. Do not scrub. Do not soak. Blot dry. Follow up: Please confirm a follow up appointment with your surgeon 3 weeks post operatively. Please make an appointment to follow up with your PCP in 1-2 weeks after surgery for evaluation 3 phase, 3-week plan POST OP WEEKS 1-3 1. Lifting/carrying/pushing/pulling limited to less than 5 pounds. 2. Do not sit for longer than 15 minutes at one time. Get up and walk around. Prolonged sitting is NOT advised. If you lay down, see if you can tolerate laying down on you front (belly side) 3. Walk for periods of 15 minutes = 1 mile but no longer; do it multiple times times each day. 4. Ice your low back after activity. POST OP WEEKS 3-6 1. Lifting limited to less than 20 pounds. 2. Do not sit for longer than 30 minutes at a time. Frequently change positions. Use a sit-to stand workstation or take frequent breaks from sitting if you have returned to work. 3. Walk for 30 minutes each day. If possible, do these three or more times a day POST OP WEEKS 6+ At your 6-week appointment we will give you a physical therapy referral to focus on a core stabilization and strengthening program. You should also work on leg & buttock strengthening, hamstring & quadriceps stretching, and continue a low impact aerobic activity program such as swimming, walking, or riding a stationary bicycle. During the initial 6 weeks after your surgery, you are at the highest risk of re-injuring your spine. You should generally avoid BLTs (bending, lifting and twisting combination motions) and follow the above guidelines to reduce the chance of reinjury. You can anticipate post op appointments in our office at approximately 3 weeks and 6 weeks after your surgery. INCISION CARE: If your incision is not draining you do NOT need to cover it with a dressing. Keep your incision clean, dry and intact. In most cases, we apply skin glue, nirmal or sutures to the incision at the time of surgery. This will be like a crust or have the appearance of a scab and will fall off in time on its own. The stitches or nirmal need to be removed at 3 weeks post op appointment. You may begin to shower 3 days after surgery (this allows the glue to erickson well). However, please avoid scrubbing the incision site or peeling off any of the skin glue. This will ensure optimal healing of your incision. Also, during this time avoid soaking the incision area in water - this includes swimming pools, hot tubs or baths. No ointments, lotions or oils on the incision until your surgeon allows. Leave nirmal, sutures or glue in place. Neurological dysfunction that comes on suddenly can also be a sign of a stroke. Below some common symptoms of a stroke are listed: B - balance difficulty such as sudden onset walking or leaning to one side - NEW E - eye problem such as sudden double vision or trouble seeing on one side - NEW F - Facial weakness or numbness on one side - NEW A - Arm or leg weakness or numbness on one side - NEW S - Slurred speech or difficulty with word finding - NEW T - Time is BRAIN! Call 911 as soon as you recognize these symptoms Diet: Consume a regular diet rich in vegetables and lean protein such as chicken or fish. You should consume in a ratio of approximately 20% fats|40% carbohydrates|40%protein. Vegetables, sweet potatoes, brown rice or quinoa are examples of good carbohydrates. Chips, white bread, cookies and sweets/sugar are examples of bad carbohydrates. Limit your bad carbs, go wild with good carbs. "Life's Simple 7" Guidelines as per [employer] [employer] These will help you reclaim your life after surgery and post tensioning ironworker helper in your recovery, keeping in mind your restrictions. (1) Get Active. Physical activity can help people lose weight, control high blood pressure and cholesterol, feel emotionally better, and sleep better. (2) Control Cholesterol. Avoid a diet high in saturated fat, trans fat, & cholesterol. Limit whole milk & cream, ice cream, butter, egg yolks, processed meats (like sausage and hot dogs), and fatty meats. Choose healthy foods that are low in saturated fat, trans fat and cholesterol which include: Fruits and vegetables, fiber rich grain products (like whole grain pasta and brown rice), lean meat such as chicken, fish, nuts, seeds, and legumes. (3) Eat Better. Eat small portions. Shop at the grocery with a list and do not stray from it. Tips for a healthy diet include: Limit sodium intake to less than 1500mg daily, avoid prepackaged, processed, and fast foods, choose a diet rich in fruits, vegetables, and whole grain, high fiber foods, and limit saturated & cholesterol in your diet. (4) Manage Blood Pressure. If you have high blood pressure, you should have a cuff at home so that you can check your blood pressure regularly. Be sure you have a good cuff. An arm one is generally better than a wrist one. Bring the cuff to a doctor's appointment to validate that the measurements that your cuff are taking are accurate. Take your blood pressure twice daily when you are sitting down and relaxing. Record the numbers in a log and bring this log with you to your doctors' appointments. (5) Lose Weight if your BMI is above 25. A healthy BMI is between 19-25. To calculate Your BMI, you may use a Standard BMI Calculator on the NIH BMI website: <www.nhlbi.nih.gov/guidelines/obesity/BMI/bmicalc.htm>. Weigh oneself daily. If you are overweight, set a goal to lose weight. A pound a week loss if needed is a good target. (6) Reduce Blood Sugar. Limit foods and liquids with "added sugars." (Added sugars include sucrose, fructose, glucose, maltose, dextrose, high fructose corn syrup, corn syrup, concentrated fruit juice and honey). (7) Stop Smoking. If you smoke, quitting smoking is one of the best things that you can do for your health. Smoking increases your risk of heart attack, stroke, and peripheral vascular disease, which is a build-up of plaque in your arteries. Please discard all the cigarettes and lighters in your house. Have a plan for what you will do when you have the urge to smoke. Direct and second- hand smoke shortens your life as well as the lives of your family, friends and others around you. For your health and the health of those around you, please consider quitting! Proper Bending Body Mechanics: Maintain a wide stance with one foot slightly in front of the other. Keep your back straight. Bend utilizing the strength in your hips and knees. Do not bend at the waist. Maintain the lifted object at your waist-level close to your body. Avoid lifting weight that causes immediately pain or pain anywhere in the body afterwards. Smoking/Nicotine If there was ever one thing that you could do to increase your overall health, decrease your risk of cardiovascular problems by about 39% the second you make the choice, it is to STOP SMOKING. Your body's most instant gratification is the second you stop smoking. We have all heard the studies, read the articles but it is true, smoking is extremely bad for your overall health, and moreover it is detrimental to your bone health. Nicotine, IN ANY FORM, kills bone cells, prevents your body from healing fractures, and significantly prolongs healing after surgery. In spine surgery specifically, it increases your risk of not healing your bones to create a fusion and increases your risk of having a revision surgery due to this up to 60%. I know it is hard. I know it feels impossible. But there are ways. Take control of your life. We are here to help you through it. And when you are ready, ask us and we can direct you to help if you desire. Use the START Plan to Quit Smoking (please visit the Helpguide.org website listed below for more information): S = Set a quit date. Choose a date within the next 2 weeks, so you have enough time to prepare without losing your motivation to quit. If you mainly smoke at work, quit on the weekend, so you have a few days to adjust to the change. T = Tell family, friends, and co-workers that you plan to quit. Let your friends and family in on your plan to quit smoking and tell them you need their support and encouragement to stop. Look for a quit lisa who wants to stop smoking as well. You can help each other get through the rough times. A = Anticipate and plan for the challenges you'll face while quitting. Most people who begin smoking again do so within the first 3 months. You can help yourself make it through by preparing ahead for common challenges, such as nicotine withdrawal and cigarette cravings. R = Remove cigarettes and other tobacco products from your home, car, and work. Throw away all your cigarettes (no emergency pack!), lighters, ashtrays, and matches. Wash your clothes and freshen up anything that smells like smoke. Shampoo your car, clean your drapes and carpet, and steam your furniture. T = Talk to your doctor about getting help to quit. Your doctor can prescribe medication to help with withdrawal and suggest other alternatives. If you can't see a doctor, you can get many products over the counter at your local pharmacy or grocery store, including the nicotine patch, nicotine lozenges, and nicotine gum. Resources for Quitting Smoking: <https://www.[place].gov/documents/[facility] [place]/Quit_Tobacco_Resources_for_patients_313 480_7.pdf> Supplementation: Take recommended dosages of Vitamin D and Calcium to help fortify your bones and help them to heal. See your health maintenance packet for dosages and re commended levels. DVT/VTE prophylaxis: You will be given compression stockings from the hospital. Wear these daily for the first two weeks after surgery. You may take them off at night. You may be prescribed a medication to help thin your blood. Take this as directed. If you are not prescribed this medication, early and frequent ambulation has been shown to be the best prophylaxis to deep vein thrombosis and sequelae related to this event. Discharge Disposition: HOME WITH HOME HEALTH SERVICES
[2023-05-30] MEDS: LACTATED RINGERS 1,000 ML IV SCH (12:16)
--- NOTE | 2023-05-30 15:09 | P.PN ---
Subjective Progress Note Date: 05/30/23 . - Reason for Consult Consult date: 05/29/23 Medical management - Chief Complaint S/p lumbar surgery. - History of Present Illness Patient is a 62-year-old female with a known history of asthma, osteoarthritis, history of fall about a year ago and since then has been having chronic low back pain. Patient also had fractured vertebrae. She has been having sharp pain down the bilateral lower extremity consistent with numbness and tingling. Failed conservative measures including epidural steroid injection and LSO brace and pain medication including lidocaine patches without much relief. Patient had MRI of the lumbar spine showed degenerative changes with L4-L5 moderate neural foraminal stenosis with facet abutting the exiting nerve roots bilaterally. Left greater than right. Compression deformity of the L3 with at least 25 to 50% height loss without evidence of retropulsion. Patient underwent L5-S1 posterior lateral and interbody fusion and lamina foraminectomy, insertion of interbody device L5-S1 on 05/29/2023. CT lumbar spine showed postsurgical changes without evidence of immediate postoperative complication. Laboratory data showed potassium level 4.3. Patient currently denies any complaints of chest pain or shortness of breath. Bilateral lower extremity pain is better. No complaints of nausea vomiting abdominal pain or diarrhea. No cough or sputum production. Patient does have history of smoking and uses marijuana daily. 05/30/2023 Patient is seen and evaluated in follow-up this morning currently sitting up in the chair reports to feeling well. Patient reports her pain is a little more intense while sitting up although had no pain while laying in bed. Patient reports not much of an appetite although is tolerating diet with no reported nausea. Patient did have an episode of vomiting last night but has none since. Patient denies chest pain or shortness of breath and is afebrile. Patient reports she is going home today. Patient is medically stable for discharge today. Home medications reviewed and resumed and patient has been instructed to take incentive spirometer home and continue using at least 10 times every hour while awake. Review of systems: Constitutional: No reports of fatigue, fever, or chills Cardiovascular: No reports of chest pain or palpitations Respiratory: No reports of shortness of breath or cough GI: No reports of nausea, vomiting, or diarrhea : No reports of dysuria or retention Neurovascular: No reports of weakness , reports some mild discomfort while sitting up the lower back All medications have been reviewed PHYSICAL EXAMINATION: Patient is sitting up in the chair, no acute distress, awake alert and oriented.. HEENT: Normocephalic. Neck is supple. Pupils reactive. Nostrils clear. Oral cavity is moist. Neck reveals no JVD, carotid bruits, or thyromegaly. CHEST EXAMINATION: Trachea is central. Symmetrical expansion. Lung silva clear to auscultation and percussion. CARDIAC: Normal S1, S2 with no gallops. No murmurs ABDOMEN: Soft. Bowel sounds present. Nontender. No organomegaly. No abdominal bruits. Extremities: reveal no edema. No clubbing or cyanosis Neurologically awake, alert, oriented x3 with well-coordinated movements. No focal deficits noted Skin: No rash or skin lesions. Psychiatric: Cooperative. Non-suicidal, Musculoskeletal: No joint swelling or deformity. Normal range of motion. Assessment: Status post L5-S1 posterior lateral and interbody fusion, laminal foraminotomy and insertion of intervertebral body device. Postoperative day 1 Bilateral lower extremity radiculopathy left greater than right. Chronic low back pain History of fall about 1 year ago Osteoarthritis Asthma not in exacerbation Daily marijuana use Plan: Patient will be continued on pain management to orthopedics. Encourage incentive spirometry and patient has been instructed to continue using at least 10 times every hour while awake as well as taking home and using. Patient worked with physical therapy and did relatively well and is planning on going home Patient home medications have been reviewed and resumed A.m. labs reviewed and within normal limits We will continue to follow with orthopedics during hospitalization. Thank you kindly for this consultation. Patient instructed to follow-up with primary care provider on discharge Patient is medically stable for discharge today. The impression and plan of care has been dictated by Rosanna Cramer, Nurse Practitioner as directed. Dr. Tonny MD I have performed a history and examination and MDM of this patient, discussed th e same with the dictator, and agree with the dictator's assessment and plan as written ,documented as a scribe. Based on total visit time, I have performed more than 50% of the visit. Objective - Vital Signs Vital signs: Vital Signs Temp 99.9 F H 05/30/23 06:58 Pulse 71 05/30/23 06:58 Resp 18 05/30/23 06:58 BP 131/82 05/30/23 06:58 Pulse Ox 96 05/30/23 06:58 FiO2 Intake & Output 05/29/23 05/30/23 05/30/23 18:59 06:59 18:59 Intake Total 1450 Output Total 75 Balance 1375 Weight 71.6 kg Intake: IV 1450 Output: Estimated Blood Loss 75 Other: # Voids 1 1 - Labs CBC & Chem 7: 05/30/23 06:18 05/30/23 06:18 Labs: Abnormal Lab Results - Last 24 Hours (Table) 05/30/23 05/30/23 Range/Units 06:18 06:18 Lymphocytes # 0.9 L (1.0-4.8) k/uL Glucose 110 H (74-99) mg/dL
[2023-06-05] MEDS ORDERED: [UNRECOGNIZED DRUG - OTHER] PO SCH (09:00)
== END 2023-05-30 13:16 | disposition home health service (06) ==
LOC: OR 06:33 → 4SSUR 10:15 → OR 05-30 13:16
PROVIDERS: ATTEND Orthopaedic Surgery
DX: M48.061 Spinal stenosis, lumbar region without neurogenic claudication (principal); M47.26 Other spondylosis with radiculopathy, lumbar region; J45.909 Unspecified asthma, uncomplicated; G89.29 Other chronic pain; Z90.710 Acquired absence of both cervix and uterus; Z90.89 Acquired absence of other organs; Z90.49 Acquired absence of other specified parts of digestive tract; Z83.3 Family history of diabetes mellitus; Z79.899 Other long term (current) drug therapy
CPT/HCPCS: 22633; 22840; 20930; 20937; 22853; 61783; 97162; 80048; 84132; 85025; 72100; 72131; C1713; C1734; J3370; J0690; J2405; J1170; J0665; 86850; 86900; 86901

== ENCOUNTER → 2024-01-24 | Outpatient (CLI) | payer OTHER ==
[2024-01-24 15:11] LABS: INR 1.01 sec (0.93-1.11); Prothrombin Time 10.9 sec (9.9-11.9)
[2024-01-24 16:19] LABS: ALT 19 U/L (8-44); AST 19 U/L (13-35); Albumin 4.6 g/dL (3.8-4.9); Albumin/Globulin Ratio 2.19 Ratio (1.60-3.17); Alkaline Phosphatase 82 U/L (41-126); BUN/Creat Ratio 23.29 Ratio (12.00-20.00); Blood Urea Nitrogen 16.3 mg/dL (9.0-27.0); Calcium 9.6 mg/dL (8.7-10.3); Carbon Dioxide 26.6 mmol/L (21.6-31.8); Chloride 106 mmol/L (96-109); Globulin 2.1 g/dL (1.6-3.3); Glucose 98 mg/dL (70-110); HCT 43.6 % (37.2-46.3); HGB 13.9 g/dL (12.0-15.0); MCH 27.5 pg (27.0-32.0); MCHC 31.9 g/dL (32.0-37.0); MCV 86.3 FL (80.0-97.0); Mean Platelet Volume 9.9 FL (9.5-12.2); NRBC Per 100 WBC 0 X 10*3/uL (0.00-0.01); Platelet Count 338 X 10*3/uL (140-440); Potassium 4.3 mmol/L (3.5-5.5); RBC 5.05 X 10*6/uL (4.10-5.20); Sodium 143 mmol/L (135-145); Total Bilirubin 0.3 mg/dL (0.3-1.2); Total Protein 6.7 g/dL (6.2-8.2); WBC 4.64 X 10*3/uL (4.50-10.00)
== END | disposition home or self-care (01) ==
LOC: LABPAT 11:29
PROVIDERS: ATTEND Internal Medicine
DX: Z01.818 Encounter for other preprocedural examination (principal); S22.009A Unspecified fracture of unspecified thoracic vertebra, initial encounter for closed fracture; Z22.322 Carrier or suspected carrier of Methicillin resistant Staphylococcus aureus
CPT/HCPCS: 36415; 80053; 85027; 85610; 86850; 86900; 86901; 87070; 93005

== ENCOUNTER 2024-02-01 11:02 | Day surgery (SDC) | payer OTHER ==
[~2024-02-01 11:02] MED LIST changes: -ACETAMINOPHEN TAB 500 MG TAB PO PRN; -GABAPENTIN 300 MG CAP PO PRN; +HYDROmorphone 0.5 MG/0.5 ML SYRINGE IVP PRN; -ONDANSETRON 4 MG/2 ML VIAL IVP PRN
[2024-02-01] MEDS: ACETAMINOPHEN TAB 500 MG TAB PO PRN (11:29)
[2024-02-01] MEDS: GABAPENTIN 300 MG CAP PO PRN (11:29)
[2024-02-01] MEDS: LACTATED RINGERS 1,000 ML IV SCH (11:33)
[2024-02-01] MEDS: ONDANSETRON 4 MG/2 ML VIAL IVP PRN (11:37)
[2024-02-01] MEDS: DEXAMETHASONE SOD PHOSPHATE 4 MG/ML 1 ML VIAL IV ONE (11:37)
[2024-02-01 11:51] LABS: Glucose,Whole Blood 85 mg/dL (70-110)
--- NOTE | 2024-02-01 12:20 | P.HPOR ---
History of Present Illness H&P Date: 02/01/24 Chief Complaint: Thoracic back pain .T:Title: [facility] H&P Age: 63 year Height: 5'6" Weight: 154 lbs BP:/ BMI: 24.86 kg/m2 Occupation: Unemployed VAS: 3 CC: Mid-back pain s/p L5-S1 MIS TLIF IMPRESSION: It was my pleasure to have seen and examined Jena. I reviewed the patient's clinical syndrome, physical findings, and imaging studies during the appointment today. It is my impression that the patient has a diagnosis of. 1. T8 compression 2. Thoracic pain 3. s/p L5-S1 MIS TLIF PLAN: -I discussed treatment options with the patient, including operative and non- operative options, and they have elected to proceed with the following surgical procedure: Thoracic T8 Kyphoplasty The indications, risks, benefits, and alternatives to surgery were discussed with the patient at length. Specifically (but not limited to) the risks of infection, stiffness, recurrence of symptoms, need for revision surgery, local numbness, neurovascular injury, and blood clots were discussed. The patient's questions were answered. The decision to proceed was made. Consent will be obtained for the procedure. -A new prescription was given for Medrol dose billy and Flexeril -Ambulate daily -Take medications as directed -Ice and rest for pain and swelling control. FOLLOW UP:Post procedure HISTORY: Ms. Oliveros presents to the office today, 01/24/24, for an evaluation of her mid back pain. Patient states since her lumbar fusion she has began strength training. Patient reports during her exercise routine 2.5 weeks ago, she went to lift some weights and felt something "crack" in her mid back. Since this incident she reports a aching and sharp throacic pain. Pateint denies any radicular symtpoms. She states her symptoms are exacerbated with any activity or deep breathes. Patient denies any current medications. Patient is ambulatory independently. The patients' past social, medical, family, surgical history, as well as review of systems, have been reviewed. Please refer to the Neurosurgery History and Physical form that has been scanned into our electronic medical record system. 16 points review of systems completed and as stated in HPI, all other systems re viewed are negative. Social History: Reviewed, see appropriate section of the chart for details. P3 Family History: Reviewed, see appropriate section of the chart for details. P2 Past Medical History: Reviewed, see appropriate section of the chart for details. P1 Current Medications: Rx: magnesium Ref: 0 Rx: MMJ , Ref: 0 RADIOGRAPHS: XRay Thoracic AP/lateral 3 [facility]aken at [facility] on 01/24/24: Mild curvature at the thoracolumbar junction. T8 vertebral compression fracture demonstrated with 25% height loss. No other osseous abnormalites noted. PHYSICAL EXAM: General: AOX3, NAD, Well hydrate, Well nourished HEENT: No lumps or masses Heart: RRR, no murmur, no eileen Lungs: CTAB, no w/r/r Extremities: No color changes, no pooling Hairy Patches: ABSENT Dorsal Skin Dimples: Normal [employer] spots: ABSENT Surgical Incisions: Lumbar incisions, well healed Muscle Appearance: Well formed, no atrophy Palpation: Midline: NO Paracervical: NO Parathoracic: NO Paralumbar: NO SIJ Testing: No Postural Balance: Coronal: BALANCED Sagittal: BALANCED Shoulder height: LEVEL Pelvic Girdle: LEVEL ROM and Appearance: Neck: UNRESTRICTED Lumbar: RESTRICTED Shoulders: Symmetrical Hips: Symmetrical Knees: Symmetrical Hands: Symmetrical Feet: Symmetrical VASCULAR STATUS: RUE- 2 LUE-2 RLE-2 LLE-2 Edema: NONE NEUROLOGICAL EXAMINATION: Mental Status: Awake, alert, oriented fully with normal attention, concentration and memory. Fluent appropriate speech. CRANIAL NERVES: I: Olfactory not tested. II: Visual acuity normal, no visual field deficit noted with confrontation. III,IV: Normal pupillary reflexes & intact extraocular movements without nystagmus. V,: Intact symmetrical facial sensation. VII: Intact symmetrical facial motor movementVIII: Hearing intact. IX,X: Intact gag, swallow, & normal voice. XI: Sternocleidomastoid, trapezius function intact. XII: Tongue midline with normal movements. TENSIONING: SLR-NEG Lhermittes- NEG Spurling's Sign- NEG Cubital Percussion- NEG Tinels at wrist- NEG MOTOR EXAM (0-5/5, NT) Muscle appearance:Symmetrical, without signs of atrophy or dystrophy UPPER EXTREMITY RIGHT LEFT Shoulder Abduction 5 5 Biceps 5 5 Triceps 5 5 Wrist Extension 5 5 Hand Intrinsics 5 5 Blow Molder 5 5 -Hand and finger dexterity intact bilaterally? YES -Dysdiadochokinesia examination negative bilaterally? YES LOWER EXTREMITY RIGHT LEFT Hip Flexion 5 5 Knee Extension 5 5 Knee Flexion 5 5 Dorsiflexion 5 5 Plantarflexion 5 5 EHL 5 5 FHL 5 5 REFLEXES (0-4/2, NT): RUE-2LUE-2 RLE-2 LLE-2 PATHOLOGICAL REFLEXES: Hoffmans: ABSENT BL Clonus: ABSENT BL Babinski: NEG BL Rectal Tone: INTACT SENSATION (0-4, NT): RUE-2LUE-2 RLE-2 LLE-2 Dermatomal deficit: n/a GAIT AND FUNCTIONAL EVALUATION: Ambulatory aids- INDEPENDENT Rombergs test- NEG toe/heel walk- INTACT Squatting to a min of 60 deg and back- ABLE Single leg stance- ABLE Hand to finger (nose)- ABLE smooth Trendelenburg sign negative bilaterally PATIENT EDUCATION: Medications Reviewed: YES In our visit today Ms. Oliveros and I have had a chance to go over my understanding of the patient's current condition, the natural course history without intervention and various interventional options. Questions were invited and answered, and the patient wishes to proceed as outlined above. I will be sure to keep you updated after Ms. Oliveros returns here for further follow-up. Thank you again for your referral. Please do not hesitate to contact me if you have any further questions. Past Medical History Past Medical History: Asthma, Osteoarthritis (OA) Additional Past Medical History / Comment(s): Environmental allergies, chronic low back pain/fractured vertebrae, weak bladder, pt. states she had a blood clot twice in her legs that she got rid of on her own by taking lumbrokinase History of Any Multi-Drug Resistant Organisms: None Reported Past Surgical History: Appendectomy, Back Surgery, Hysterectomy, Orthopedic Surgery, Tonsillectomy Additional Past Surgical History / Comment(s): C-Sections x 2, D&C and artery was nicked/repaired/infection then hysterectomy, L knee arthroscopy/meniscus, colonoscopies; back surgery 2022 Past Anesthesia/Blood Transfusion Reactions: Postoperative Nausea & Vomiting (PONV) Additional Past Anesthesia/Blood Transfusion Reaction / Comment(s): Pt has received blood in past without reaction. PONV after back surgery. Smoking Status: Former smoker - Past Family History Father Family Medical History: Diabetes Mellitus Mother Family Medical History: Cancer Medications and Allergies Home Medications Medication Instructions Recorded Confirmed Type Cholecalciferol (Vitamin D3) 5,000 units PO HS 05/29/23 02/01/24 History [Vitamin D3 (1250 Mcg = 50,000 Iu)] Food Grade Diatemacous Earth 1 tsp PO DAILY 05/29/23 02/01/24 History Solgohachia-3/Dha/Epa/Fish Oil [Fish Oil 1 capsule PO DAILY 05/29/23 02/01/24 History 1,000 mg Softgel] Cyclobenzaprine [Flexeril] 5 mg PO TID PRN 01/28/24 02/01/24 History Magnesium Oxide [Mag-Ox] 250 mg PO HS 01/28/24 02/01/24 History Mv-Min/Folic/Vit K/Lut/Cued606 1 each PO DAILY 01/28/24 02/01/24 History [Alive Women's 50 Plus Tablet] methylPREDNISolone Dose Pack 4 mg PO DIRECTED 01/28/24 02/01/24 History [Medrol Dose Pack] Allergies Allergy/AdvReac Type Severity Reaction Status Date / Time environmental Allergy Mild Cough Uncoded 02/01/24 11:18 Physical Examination Osteopathic Statement: *. No significant issues noted on an osteopathic structural exam other than those noted in the History and Physical/Consult.
[2024-02-01] MEDS ORDERED: LIDOCAINE 1% INJ 10MG/ML (20 ML MDV) ONE (12:29)
[2024-02-01] MEDS ORDERED: SUCCINYLCHOLINE CHLORIDE 200 MG/10 ML VIAL IV ONE (12:29)
[2024-02-01] MEDS ORDERED: PHENYLEPHRINE 10 MG/ML VIAL ONE (12:29)
[2024-02-01] MEDS ORDERED: MIDAZOLAM 2 MG/2 ML VIAL ONE (12:29)
[2024-02-01] MEDS ORDERED: fentaNYL (PF) 50 MCG/ML 2 ML AMP ONE (12:29)
[2024-02-01] MEDS ORDERED: PROPOFOL 10 MG/ML 20 ML VIAL IV ONE (12:29)
[2024-02-01] MEDS: BUPIVACAINE (PF) 0.5% 30 ML VIAL SQ ONE ×2 (12:52→12:58)
[2024-02-01] MEDS: LIDOCAINE 2% URO-JET JELLY 5 ML KIT MISCELLANE ONE ×2 (12:52→12:58)
[2024-02-01] MEDS: IOPAMIDOL M200 10 ML VIAL MISCELLANE ONE (12:58)
[2024-02-01] MEDS: LACTATED RINGERS 1,000 ML IV ONE (13:13)
--- NOTE | 2024-02-01 13:55 | FL ---
EXAMINATION TYPE: FL guidance operating room, XR thoracic spine 2V Intraoperative/procedural fluorosc opic services were provided. Total fluoroscopy time is 36 seconds with a total of 4 submitted images to PACS. Please see the operative/procedural note for further details. DAP: 2.4643 Gycm2
[2024-02-01 14:21] VITALS: TEMP 97.4
[2024-02-01 15:18] VITALS: BP 129/88; PULSE 81; RESP 18
--- NOTE | 2024-02-05 17:16 | P.OP ---
Date of Procedure: 02/01/24 Preoperative Diagnosis: 1. T8 VCF 40% 2. BACK PAIN 3. SP INJURY Postoperative Diagnosis: 1. T8 VCF 40% 2. BACK PAIN 3. SP INJURY Procedure(s) Performed: 1. T8 KYPHOPLSTY BIOPSY Implants: EMILY CEMENT Anesthesia: GETA Surgeon: Fabian Lo Sweet Pickled Fruit Maker #1: Luis M Roberson (WAS PRESENT AND ASSISTED WITH ALL ASPECST OF THE CASE FROM POSITION TO CLOSURE) Estimated Blood Loss (ml): 5 IV fluids (ml): 50 Urine output (ml): 0 Pathology: other (T8 VERTERBAL BODY) Condition: stable Disposition: PACU Indications for Procedure: PLAN: -I discussed treatment options with the patient, including operative and non- operative options, and they have elected to proceed with the following surgical procedure: Thoracic T8 Kyphoplasty The indications, risks, benefits, and alternatives to surgery were discussed with the patient at length. Specifically (but not limited to) the risks of infection, stiffness, recurrence of symptoms, need for revision surgery, local numbness, neurovascular injury, and blood clots were discussed. The patient's questions were answered. The decision to proceed was made. Consent will be obtained for the procedure. Description of Procedure: KYPHOPLASTY T8 The patient was seen and examined in the preoperative area. All preoperative protocols were followed. Informed consent was obtained, risks and benefits of the procedure were discussed at length. Risks including bleeding infection damage to the surrounding tissue and risk of re-operation were discussed with the patient. Risk of anesthesia up to and including was discussed with the patient. These are outlined in the risk review. They were willing to accept these risks and all the risks of surgery. The patient was given a weight-based dose of antibiotics in the form of 2 g Ancef. The patient was seen and evaluated by the anesthesia team who deemed them fit for surgery. The site was marked, the patient was willing to proceed with the procedure. The patient was transferred to the operative suite by the Department of anesthesia. They were then drifted off to sleep by the department anesthesia and GETA was performed. The patient tolerated this well. Once confirmation of lines and ventilation the patient was transferred to a prone Octavio table very carefully. All bony prominences including wrists, elbows, axilla, chest, hips, and thighs, and feet were padded very well. Special attention was paid to the genitalia, and these were padded accordingly. SCDs were placed on bilateral lower extremities and were connected. Arms were well padded and placed on arm boards up and out in the 90/90 position. Once in position, again we confirmed good ventilation capabilities and that lines were running appropriately. The p atients Lumbar spine was then exposed. 1010s were placed outlining the incision site. Standard alcohol was used to clean the incision site and allowed to dry. C-arm was used to needle localize the pedicles at T8 and bio-gama the patient and confirm level for incision which was marked with a skin marker. Operative briefing was performed with all teams and everyone in agreement to proceed. The patient was then prepped and draped in a normal sterile fashion. Timeout was then performed, and all parties agreed with the procedure to be performed. Skin bipin was made. Jamshitdis was passed into the T8 vertebral body via the pedicle. This was done with biplane fluoroscopy. Once in good position in the body the trochar removed. Biopsy needle was passed into the body and biopsy taken. Drill was then passed and biopsy material taken from drill as well. Curette used to make space and reduce the fracture. Balloon was then passed an inflated which showed reduction of endplate on AP and Lateral and confirmed central placement. Cement was then placed bilaterally under flouroscopic guidance. Good fill of cement was seen without extravasation. Pt remained stable through process. Once good fill, the Jamshedi was removed and the wound irrigated. AP and lateral confirmed good reduction of the fracture and good cement fill. The skin was closed with a simple stitch and dressed with glue and a bandaid. The patient was then transferred off the table back to their hospital bed a- traumatically. They were extubated by the department of anesthesia. They were then transferred to PACU in stable condition having tolerated the procedure with no complications.
== END 2024-02-01 15:11 | disposition home or self-care (01) ==
LOC: OR 11:02
PROVIDERS: ATTEND Orthopaedic Surgery
DX: M54.6 Pain in thoracic spine (principal); J45.909 Unspecified asthma, uncomplicated; M19.90 Unspecified osteoarthritis, unspecified site; G89.29 Other chronic pain; Z90.49 Acquired absence of other specified parts of digestive tract; Z90.710 Acquired absence of both cervix and uterus; Z98.891 History of uterine scar from previous surgery; Z87.891 Personal history of nicotine dependence; Z83.3 Family history of diabetes mellitus; Z79.899 Other long term (current) drug therapy; Z91.048 Other nonmedicinal substance allergy status; Z90.89 Acquired absence of other organs; Z98.890 Other specified postprocedural states
CPT/HCPCS: 88307; 88311; 72070; 22513; J2250; J0330; J1100; J0690; J2405; J2001; J3010; J2704; Q9966; J2371; J0665

== ENCOUNTER → 2024-02-28 | Outpatient (CLI) | payer OTHER ==
--- NOTE | 2024-03-05 09:00 | BD ---
EXAMINATION TYPE: Axial Bone Density DATE OF EXAM: 02/28/2024 CLINICAL HISTORY: 63 years old Female. ICD-10 CODE: Z91.89 OTH PERSONAL RISK FACTORS, NOT ELSEWHERE CL Height: 64 Weight: 155 FRAX RISK QUESTIONS: Family History (Parent hip fracture): yes her mother History of Fracture in Adulthood: yes Secondary Osteoporosis: yes 3. Menopause before 45: yes, 30 yrs old Current Tobacco Use: former smoker RISK FACTORS HISTORY OF: right tib fib fracture, left foot Spine Fracture: yes, as an adult Surgery to Spine L5 S1 surgical repair with hardware MEDICATIONS: vit d with magnesium, and multivitamin, EXAM MEASUREMENTS: Bone mineral densitometry was performed using the [employer] System. spine not scanned...surgery and fractures Bone mineral density about the R hip (g/cm2): 0.868 Bone mineral density about the L hip (g/cm2): 0.890 T Score values are as follows: -----R Neck: -1.3 -----L Neck: -1.3 -----R Total: -1.1 -----L Total: -0.9 Z Score values are as follows: -----R Neck: 0.0 -----L Neck: 0.0 -----R Total: -0.1 -----L Total: 0.1 Bone mineral density is a baseline study today. Bone mineral density about the L Wrist (g/cm2): 0.490 T Score values are as follows: -----Dist. R+U: -1.4 -----Prox. R+U: -1.9 -----Radius total: -2.8 Z Score values are as follows: -----Dist. R+U: -0.01 -----Prox. R+U: -0.6 -----Radius total: -1.5 Bone mineral density is her first dexa study. FRAX%s: The graph provided illustrates a 26.6% chance for a major osteoporotic fx and a 1.4% chance f or the hips probability for fx in 10 years time. IMPRESSION: Osteoporosis (T Score less than -2.5). There is increased fracture risk and therapy is usually indicated based on age. Re-Screen 1-2 years. NOTE: T-SCORE=SD OF THE YOUNG ADULT MEAN.
== END | disposition home or self-care (01) ==
LOC: RADBDWWP 09:52
PROVIDERS: ATTEND Internal Medicine
DX: M81.0 Age-related osteoporosis without current pathological fracture (principal); M85.89 Other specified disorders of bone density and structure, multiple sites; Z91.89 Other specified personal risk factors, not elsewhere classified
CPT/HCPCS: 77080